=== PATIENT | female | born 1965 | race Caucasian/White ===

== ENCOUNTER → 2017-01-20 | Outpatient (CLI) | payer OTHER ==
[2017-01-20 12:49] LABS: ALT/SGPT 18 U/L (12-78); AST/SGOT 15 U/L (15-37); BLOOD UREA NITROGEN 13 mg/dl (7-18); BUN/CREATININE RATIO 17.9 (10-20); CALCIUM 8.6 mg/dl (8.5-10.1); CARBON DIOXIDE 27 mmol/L (21-32); CHLORIDE 106 mmol/L (98-107); CHOLESTEROL 167 mg/dl (0-200); CREATININE 0.71 mg/dl (0.60-1.20); GLUCOSE,FASTING 91 mg/dl (70-99); POTASSIUM 4.3 mmol/L (3.5-5.1); SODIUM 138 mmol/L (136-145)
[2017-01-20 13:00] LABS: ALB/GLOB RATIO 0.9 (0.9-2); ALKALINE PHOSPHATASE 84 U/L (45-117); CHOLESTEROL/HDL RATIO 2.5; HDL CHOLESTEROL 68 mg/dl; LDL CHOLESTEROL CALCULATED 83 mg/dl; TRIGLYCERIDES 78 mg/dl (0-150); VERY LOW DENSITY LIPOPROT CALC 16 mg/dl
--- NOTE | 2017-01-28 10:31 | CODING QUERY MEDICAL NECESSITY ---
CQSUPPORTING DIAGNOSIS NEEDED A supporting diagnosis is required for the test/procedure performed on this patient in order for us to be reimbursed by the patient's insurance. Please provide a supporting diagnosis for the following test/procedure listed below next to the test name along with your signature. *If there is no additional diagnosis for this patient that would support the following test/procedure please document that below next to the test/procedure. Test(s)/Procedure(s) that require a supporting diagnosis: DOS 01/20/17 VITAMIN D TEST TEST ORDER BY CHELO NETTLES Provider Signature: Date: Thank you Nazia Gibbons Health Information Management Once completed, please kindly fax back to [phone] For questions please call [phone]
== END | disposition home or self-care (01) ==
LOC: MERGE 07:47 → C.LABPBG 07:47
PROVIDERS: ATTEND Physician Assistant
DX: Z00.00 Encounter for general adult medical examination without abnormal findings (principal); Z13.21 Encounter for screening for nutritional disorder; R53.83 Other fatigue

== ENCOUNTER → 2017-03-09 | Outpatient (CLI) | payer OTHER ==
[2017-03-09 12:54] LABS: BLOOD UREA NITROGEN 16 mg/dl (7-18); BUN/CREATININE RATIO 23.3 (10-20); CALCIUM 8.6 mg/dl (8.5-10.1); CARBON DIOXIDE 25 mmol/L (21-32); CHLORIDE 108 mmol/L (98-107); CREATININE 0.69 mg/dl (0.60-1.20); GLUCOSE 96 mg/dl (70-99); POTASSIUM 4.2 mmol/L (3.5-5.1); SODIUM 139 mmol/L (136-145)
== END | disposition home or self-care (01) ==
LOC: C.LABPBG 07:31
PROVIDERS: ATTEND Physician Assistant
DX: I10 Essential (primary) hypertension (principal)

== ENCOUNTER → 2017-05-13 | Outpatient (CLI) | payer OTHER ==
[2017-05-13 12:19] LABS: HEMATOCRIT 39.1 % (37-47); HEMOGLOBIN 13.2 g/dL (12.0-16.0); MEAN CELL VOLUME 95.4 fL (80-100); MEAN CORPUSCULAR HEMOGLOBIN 32.2 pg (25-34); MEAN CORPUSCULAR HGB CONC 33.8 g/dl (32-36); MEAN PLATELET VOLUME 11.5 fL (7.4-10.4); PLATELET COUNT 280 K/uL (130-400); RED CELL DISTRIBUTION WIDTH CV 12.1 % (11.5-14.5); RED CELL DISTRIBUTION WIDTH SD 41.9 fL (36.4-46.3); WHITE BLOOD COUNT 6.15 K/uL (4.8-10.8)
[2017-05-13 13:08] LABS: BLOOD UREA NITROGEN 15 mg/dl (7-18); CARBON DIOXIDE 27 mmol/L (21-32); CREATININE 0.82 mg/dl (0.60-1.20); GLUCOSE 100 mg/dl (70-99); POTASSIUM 3.8 mmol/L (3.5-5.1); SODIUM 137 mmol/L (136-145)
== END | disposition home or self-care (01) ==
LOC: C.LABPBG 07:34
PROVIDERS: ATTEND Family Medicine
DX: E55.9 Vitamin D deficiency, unspecified (principal); I10 Essential (primary) hypertension

== ENCOUNTER → 2017-07-15 | Outpatient (CLI) | payer OTHER ==
[2017-07-15 16:49] LABS: BASO % 0.4 %; BASO ABS # 0.04 K/uL (0-0.2); EOS % 1.2 %; EOS ABS # 0.11 K/uL (0-0.5); HEMATOCRIT 39.7 % (37-47); HEMOGLOBIN 13.7 g/dL (12.0-16.0); IG# 0.03 K/uL (0.00-0.02); LYMPH % 16.6 %; LYMPH ABS # 1.54 K/uL (1.2-3.4); MEAN CORPUSCULAR HEMOGLOBIN 32.8 pg (25-34); MEAN CORPUSCULAR HGB CONC 34.5 g/dl (32-36); MEAN PLATELET VOLUME 10.8 fL (7.4-10.4); MONO ABS # 0.65 K/uL (0.11-0.59); NEUT % 74.5 %; NEUT ABS # 6.89 K/uL (1.4-6.5); PLATELET COUNT 324 K/uL (130-400); RED CELL DISTRIBUTION WIDTH CV 12.4 % (11.5-14.5); WHITE BLOOD COUNT 9.26 K/uL (4.8-10.8)
[2017-07-15 17:35] LABS: BLOOD UREA NITROGEN 13 mg/dl (7-18); CALCIUM 9.2 mg/dl (8.5-10.1); CARBON DIOXIDE 28 mmol/L (21-32); GLUCOSE 94 mg/dl (70-99); POTASSIUM 3.4 mmol/L (3.5-5.1); SODIUM 136 mmol/L (136-145)
== END | disposition home or self-care (01) ==
LOC: C.LABPBG 14:21
PROVIDERS: ATTEND Family Medicine
DX: R51 Headache (principal)

== ENCOUNTER → 2017-09-23 | Day surgery (SDC) | payer OTHER ==
[2017-09-14 08:35] VITALS: Ht 170.2 cm; Wt 100.0 kg
[~2017-09-23] VITALS: Ht 170.2 cm; Wt 100.0 kg
[~2017-09-23] MED LIST: CHOL1000 PO; HYDR12.55 PO; HYZ/50125 PO; LIDOCAINE HCL 2% 2 ML VIAL (20MG/ML) ONE; PRM625 PO; PROPOFOL IV EMULSION 10 MG/ML 20 ML VIAL ONE; SERT-234 PO; SODIUM CHLORIDE 0.9% 500ML 500 ML IV ONE; VALA500T60 PO
--- NOTE | 2017-09-23 10:21 | Endo History and Physical ---
History & Physical Date of Service: September 23, 2017. Chief Complaint: screening Referring Physician: Dr. Geni Coates History of Present Illness 51 yo CF who presents for screening colonoscopy. Past Surgical History Hx Cardiac Surgery: No Hx Internal Defibrillator: No Hx Pacemaker: No Hx Abdominal Surgery: Yes (TUBAL,HYSTERECTOMY 1 OVARY) Hx of Implantable Prosthesis: No Hx Post-Op Nausea and Vomiting: No Hx Cancer Surgery: No Hx Thoracic Surgery: No Hx Orthopedic: No Hx Urinary Tract Surgery: No Family History Polyp Social History Smoking Status: Never Smoker Hx Substance Use: No Hx Alcohol Use: Yes (OCC WINE ) Allergies Coded Allergies: No Known Allergies (Verified , 09/23/17) Current Medications Reported Home Medications Medications Dose Route/Sig Max Daily Dose Days Date Category Vitamin D3 (Cholecalciferol) 1,000 Unit Tab 1 Tab PO QAM 90 09/14/17 Reported Valtrex (Valacyclovir HCl) 500 Mg Tab 500 Mg PO UD PRN 09/14/17 Reported Zoloft (Sertraline HCl) 100 Mg Tab 100 Mg PO QAM 09/14/17 Reported Premarin (Estrogens Conjugated) 0.625 Mg Tab 0.625 Mg PO QAM 09/14/17 Reported Hyzaar 12.5MG/50MG (HCTZ/Losartan Potassium) Tab 1 Tab PO QAM 09/14/17 Reported Hydrochlorothiazide 12.5 Mg Tab 1 Tab PO QAM 90 09/14/17 Reported Vital Signs Weight (Kilograms): 100 Height (Feet): 5 Height (Inches): 7 Date Time Temp Pulse Resp B/P (MAP) Pulse Ox O2 Delivery O2 Flow Rate FiO2 09/23/17 10:08 131/89 (103) 09/23/17 09:59 36.8 87 18 171/102 (125) 96 Room Air Physical Exam General Appearance: WD/WN, no apparent distress Respiratory/Chest: Auscultation: breath sounds normal Cardiovascular: Heart Auscultation: RRR Abdomen: Bowel Sounds: normal Inspection & Palpation: soft, non-distended, no tenderness, guarding & rebound Assessment and Plan Assessment: 51 yo CF who presents for screening colonoscopy. Plan: Proceed with colonoscopy.
--- NOTE | 2017-09-23 11:16 | Discharge Instructions ---
Endoscopy Patient Instructions Date / Procedure(s) Performed September 23, 2017. Colonoscopy Allergy Information Coded Allergies: No Known Allergies (Verified , 09/23/17) Discharge Date / Findings September 23, 2017. Internal hemorrhoids Medication Instructions OK to resume all medications today as prescribed Reported Home Medications Medications Dose Route/Sig Max Daily Dose Days Date Category Vitamin D3 (Cholecalciferol) 1,000 Unit Tab 1 Tab PO QAM 90 09/14/17 Reported Valtrex (Valacyclovir HCl) 500 Mg Tab 500 Mg PO UD PRN 09/14/17 Reported Zoloft (Sertraline HCl) 100 Mg Tab 100 Mg PO QAM 09/14/17 Reported Premarin (Estrogens Conjugated) 0.625 Mg Tab 0.625 Mg PO QAM 09/14/17 Reported Hyzaar 12.5MG/50MG (HCTZ/Losartan Potassium) Tab 1 Tab PO QAM 09/14/17 Reported Hydrochlorothiazide 12.5 Mg Tab 1 Tab PO QAM 90 09/14/17 Reported Provider Instructions Activity Restrictions - No exercising or heavy lifting for 24 hours. - Do not drink alcohol the day of the procedure. - Do not drive a car or operate machinery until the day after the procedure. - Do not make any important decisions or sign important papers in 24 hours after the procedure. Following Day: - Return to full activity which may include returning to work/school. Diet Start your diet with liquids and light foods (jello, soup, juice, toast). Then eat your usual diet if not nauseated. Treatment For Common After Affects For mild abdominal pain, bloating, or excessive gas: - Rest - Eat lightly - Lie on right side Follow-Up Information Follow-up with Dr. Geni Coates as scheduled Anesthesia Information What You Should Know You have had a procedure that required some medicine to reduce anxiety and discomfort. This treatment is called moderate sedation. After receiving the treatment, you may be sleepy, but you will be able to breathe on your own. The effects of the treatment may last for several hours. Follow these instructions along with Activity/Diet recommendations noted above: * Do NOT do anything where dizziness or clumsiness would be dangerous. * Rest quietly at home today, then you can be up and about tomorrow. * Have a responsible person stay with you the rest of today. * You may have had an I.V. today. If so, you may take the dressing off later today. Recommendations Call your doctor if: * Trouble breathing * Continuous vomiting for more than 24 hours * Temperature above 101 degrees * Severe abdominal pain or bloating * Pain not relieved by pain medicine ordered * There is increased drainage or redness from any incision * A large amount of rectal bleeding greater than 2-3 tablespoons. (If you had a polyp/s removed or have hemorrhoids, a small amount of blood - from the rectum is to be expected.) * You have any unanswered questions or concerns. IN THE EVENT OF A SERIOUS EMERGENCY, GO TO THE NEAREST EMERGENCY ROOM Your discharge instructions were prepared by provider Salvador Bradley. Patient Instructions Signature Page Ratna Forrester Patient (or Guardian) Signature/Date: I have read and understand the instructions given to me by my caregivers. Caregiver/RN/Doctor Signature/Date: The above-named patient and/or guardian has received patient instructions on this date. + Original Patient Signature Page (only) stays with chart. Please make copy for patient.
--- NOTE | 2017-09-23 11:23 | GI REPORT ---
Patient Name: Ratna Forrester Procedure Date: 09/23/2017 10:13 AM Date of : 1965 Admit Type: Outpatient Age: 51 Gender: Female Attending MD: Salvador Bradley DO Procedure: Colonoscopy Providers: Salvador Bradley DO Referring MD: Geni Coates Indications: Screening for colorectal malignant neoplasm Medicines: Monitored Anesthesia Care Complications: No immediate complications. Estimated Blood Loss: Estimated blood loss: none. Procedure: Pre-Anesthesia Assessment: - Prior to the procedure, a History and Physical was performed, and patient medications and allergies were reviewed. The patient's tolerance of previous anesthesia was also reviewed. The risks and benefits of the procedure and the sedation options and risks were discussed with the patient. All questions were answered, and informed consent was obtained. Prior Anticoagulants: The patient has taken no previous anticoagulant or antiplatelet agents. ASA Grade Assessment: II - A patient with mild systemic disease. After reviewing the risks and benefits, the patient was deemed in satisfactory condition to undergo the procedure. After I obtained informed consent, the scope was passed under direct vision. Throughout the procedure, the patient's blood pressure, pulse, and oxygen saturations were monitored continuously. The scope was introduced through the anus and advanced to the terminal ileum. The colonoscopy was performed without difficulty. The patient tolerated the procedure well. The quality of the bowel preparation was good. The terminal ileum, ileocecal valve, appendiceal orifice, and rectum were photographed. Findings: The perianal and digital rectal examinations were normal. Non-bleeding internal hemorrhoids were found during retroflexion. The hemorrhoids were small. Impression: - Non-bleeding internal hemorrhoids. - No specimens collected. Recommendation: - Resume previous diet. - Continue present medications. - Repeat colonoscopy in 10 months for surveillance. - Return to primary care physician as previously scheduled. Salvador Bradley DO 09/23/2017 11:22:38 AM This report has been signed electronically. Note Initiated On: 09/23/2017 10:13 AM Number of Addenda: 0 I attest to the content of the Intraoperative Record and orders documented therein, exceptions below {[id number]}
--- NOTE | 2017-09-23 11:41 | Anesthesiology Progress Note ---
Anesthesia Post Op Note Date & Time September 23, 2017 at 11:41 Vital Signs Pain Intensity: 0 Vital Signs Past 12 Hours Date Time Temp Pulse Resp B/P (MAP) Pulse Ox O2 Delivery O2 Flow Rate FiO2 09/23/17 11:36 77 20 148/96 (113) 97 Room Air 09/23/17 11:19 83 16 138/79 (98) 96 Room Air 09/23/17 10:08 131/89 (103) 09/23/17 09:59 36.8 87 18 171/102 (125) 96 Room Air Notes Mental Status: alert / awake / arousable, participated in evaluation Pt Amnestic to Procedure: Yes Nausea / Vomiting: adequately controlled Pain: adequately controlled Airway Patency, RR, SpO2: stable & adequate BP & HR: stable & adequate Hydration State: stable & adequate Anesthetic Complications: no major complications apparent
[2017-09-23 11:48] VITALS: BP 148/85; PULSE 76; O2SAT 97
== END | disposition home or self-care (01) ==
LOC: C.GI 09:36
PROVIDERS: ATTEND Internal Medicine
DX: Z12.11 Encounter for screening for malignant neoplasm of colon (principal); Z83.71 Family history of colonic polyps; I10 Essential (primary) hypertension; F32.9 Major depressive disorder, single episode, unspecified; K64.8 Other hemorrhoids

== ENCOUNTER → 2017-12-12 | Outpatient (CLI) | payer OTHER ==
[~2017-12-12] MED LIST changes: -LIDOCAINE HCL 2% 2 ML VIAL (20MG/ML) ONE; -PROPOFOL IV EMULSION 10 MG/ML 20 ML VIAL ONE; -SODIUM CHLORIDE 0.9% 500ML 500 ML IV ONE
--- NOTE | 2017-12-12 09:02 | DIAGNOSTIC IMAGING REPORT ---
(BARIUM SWALLOW) ESOPHAGUS CLINICAL HISTORY: GERDdyspnea COMPARISON STUDY: None FLUOROSCOPY TIME: 1.1 minutes. FINDINGS: Patient initiates a swallow function well. There is no evidence for aspiration or neuromuscular dysfunction. Esophagus is normal in course and caliber. Findings of a mild esophageal spasm distally. There is no significant reflux. IMPRESSION: Mild esophageal dysmotility. Otherwise normal study. The above report was generated using voice recognition software. It may contain grammatical, syntax or spelling errors. Electronically signed by: Jeramie Cruz M.D. 12/12/2017 9:01 AM Dictated Date/Time: 12/12/2017 8:59 AM
== END | disposition home or self-care (01) ==
LOC: C.RAD 07:59
DX: K21.9 Gastro-esophageal reflux disease without esophagitis (principal); K22.8 Other specified diseases of esophagus

== ENCOUNTER 2020-09-01 11:52 | Inpatient (IN) ==
[2020-09-01] MEDS ORDERED: SODIUM CHLORIDE 0.9% 1000ML 1,000 ML IV ONE (12:54)
[2020-09-01] MEDS ORDERED: dexAMETHasone**PF** 10 MG/ML VIAL IV ONE (12:55)
--- NOTE | 2020-09-01 13:03 | Emergency Department Note ---
Impression & Plan Pneumonia due to COVID-19 virus, Acute respiratory failure with hypoxia ED Provider Note NAME: ZBIGNIEW BROOKS AGE: 54 SEX: F : 1965 ARRIVES VIA: Walk-In INFORMANT: Patient ED PROVIDER(S): Naga Schuster DO CHIEF COMPLAINT: shortness of breath HPI: Patient is a 54-year-old female who presents to the ER for shortness of breath associate with cough, congestion, and a runny nose. Symptoms started 2 Sundays ago. She denies any fevers. She notes chest pain with twisting turning bending and breathing. Denies any belly pain, nausea, vomiting. She does admit to some diarrhea. No dysuria, urgency, or frequency. No other exacerbating or remitting factors. She tested positive for Covid several days ago at an outside facility. ROS: See above HPI for pertinent positives & negatives. A total of 10 systems reviewed and were otherwise negative. PAST MEDICAL HISTORY:See Below PAST SURGICAL HISTORY:See Below FAMILY HISTORY:See Below SOCIAL HISTORY:See Below HOME MEDICATIONS:See Below ALLERGIES:See Below VITALS:See Below PHYSICAL EXAMINATION: GENERAL: Sitting up in bed, alert, disheveled, intermittent cough EYE EXAM: normal conjunctiva. OROPHARYNX: no exudate, no erythema, lips, buccal mucosa, and tongue normal and mucous membranes are moist NECK: supple, no nuchal rigidity, no adenopathy, non-tender LUNGS: Clear to auscultation. Normal chest wall mechanics HEART: no murmurs, S1 normal and S2 normal ABDOMEN: abdomen soft, non-tender, normo-active bowel sounds, no masses, no rebound or guarding. UPPER EXTREMITIES: upper extremities are grossly normal. LOWER EXTREMITIES: No pitting edema. Calves are equal bilateral NEURO EXAM: Normal sensorium, cranial nerves II-XII grossly intact, normal speech, no gross weakness of arms, no gross weakness of legs. MEDICAL DECISION MAKING: Patient is a 54-year-old female who presents the ER for cough associate with shortness of breath. She is found to be hypoxic at 86% on room air. She was placed on 2 L nasal cannula. IV was established blood was obtained. Labs showed no significant leukocytosis or anemia. BMP with mild hypokalemia at 3. LFTs bilirubin was unremarkable. Troponin was negative. She is Covid positive. Chest x-ray with multifocal infiltrate. She was given IV fluids Decadron and nasal cannula. She is updated bedside discussed with the hospitalist for further evaluation. Triage Nursing notes reviewed. Limited review of prior medical records performed Vital Signs: reviewed and remarkable for hypoxic Differential diagnosis: Differential diagnoses includes but is not limited to pneumonia, bronchitis, COPD/Asthma exacerbation, pneumothorax, pulmonary embolism, congestive heart failure, acute coronary syndrome ER treatment provided: See below Diagnostics interpreted by me: ECG: Sinus rhythm rate 86 Normal axis No PVCs QTC 445 Cardiac Monitoring: An order was placed for continuous cardiac monitoring. The monitor shows a rate of 90 with sinus rhythm. Laboratory studies: As stated above and show below. Imaging studies: Portable AP upright 1 view chest shows multifocal pneumonia Consultation(s): Discussed with hospitalist for further evaluation Procedures: none Critical Care: I have personally spent 38 minutes of critical care time in the direct management of this patient. This includes bedside care, interpretation of diagnostic studies, and testing, discussion with consultants, patient, and family members, and other required patient management activities. This 38 minutes is in excess of all separately billable procedures. Past Med/Surg History Medical History (Updated 09/01/20 @ 19:05 by Naga Schuster DO) Anxiety and depression Hypertension Internal hemorrhoids Laryngopharyngeal reflux Menopausal symptoms Vitamin D deficiency Surgical History H/O: hysterectomy History of laparoscopy Family History Father Myocardial infarction Stroke Diabetes Hypertension Coronary heart disease Mother Depression Hypothyroid Cancer brain Denies family history of Ovarian cancer Prostate cancer Breast cancer Colorectal cancer Social History Smoking Status: Never smoker Second Hand Exposure: No; Hx Alcohol Use: No Hx Substance Use: No Preferred Language: Divehi Communication Ability: Effective Visual Impairment: No Limitations Hearing Ability: Normal Qa Analyst Required: No Beliefs That Will Affect Care: None marital status: Current Living Situation: Spouse current occupational status: employed How many Children do You have: 1 Other Information That Helps Us Care for You: No Feels Safe at Home: Yes Safety Concerns: Feels Safe At This Time Childhood Exposure to Second-Hand Smoke: No caffeine: Yes (Tea 1 cup per day.) during the past year weight has: remained stable Dental Care, Regularly: Yes Physical Activity Frequency: Daily Seatbelt Use: always Sunscreen Use: Yes Assistive Devices: None Allergies Allergies Allergy/AdvReac Type Severity Reaction Status Date / Time No Known Allergies Allergy Verified 09/01/20 13:14 Home Meds Home Medications Medication Instructions Recorded Confirmed cholecalciferol (vitamin D3) 25 1,000 units PO DAILY 10/23/18 09/01/20 mcg (1,000 unit) capsule valacyclovir 500 mg tablet 500 mg PO BID PRN tab 10/19/19 09/01/20 estradiol 0.5 mg PO QAM 09/01/20 09/01/20 hydrochlorothiazide 25 mg PO QAM 09/01/20 09/01/20 sertraline 100 mg PO QAM 09/01/20 09/01/20 Previous Rx's Medication Instructions Recorded amlodipine 5 mg tablet 5 mg PO DAILY #90 tab 04/21/20 naproxen 500 mg tablet 500 mg PO Q12H PRN #60 tab 08/05/20 Results & Data (ED) Vital Signs Vital Signs - 24 hr 09/01/20 12:04 09/01/20 12:54 09/01/20 13:19 Temperature 37.1 C Temperature Source Skin Pulse Rate 91 H 90 Pulse Rate [Apical] Respiratory Rate 24 20 Respiratory Effort / Characteristics Non-Labored Spontaneous Short of Breath Respiratory Depth Normal Respiratory Pattern Regular Blood Pressure 126/79 Blood Pressure Mean 94 Pulse Oximetry 91 86 L 90 Oxygen Delivery Method Room Air Room Air Nasal Cannula Oxygen Flow Rate 1 Sepsis Recent Fever Within 48 Hours No Sepsis New/Unexplained Change in Mental Status N/A Sepsis Action Taken by Nursing No Action Required 09/01/20 14:19 Temperature Temperature Source Pulse Rate Pulse Rate [Apical] 89 Respiratory Rate 20 Respiratory Effort / Characteristics Respiratory Depth Respiratory Pattern Blood Pressure Blood Pressure Mean Pulse Oximetry 91 Oxygen Delivery Method Nasal Cannula Oxygen Flow Rate 2 Sepsis Recent Fever Within 48 Hours Sepsis New/Unexplained Change in Mental Status Sepsis Action Taken by Nursing Laboratory Data Result diagrams: 09/01/20 13:36 09/01/20 13:36 Lab Results 09/01/20 09/01/20 09/01/20 Range/Units 13:36 13:36 14:13 WBC 5.18 (4.8-10.8) K/uL RBC 4.40 (4.2-5.4) M/uL Hgb 14.2 (12.0-16.0) g/dL Hct 40.0 (37-47) % MCV 90.9 (80-100) fL MCH 32.3 (25-34) pg MCHC 35.5 (32-36) g/dL RDW Std Deviation 42.3 (36.4-46.3) fL RDW Coeff of Fernando 12.5 (11.5-14.5) % Plt Count 255 (130-400) K/uL MPV 10.2 (7.4-10.4) fL Immature Gran % (Auto) 0.4 % Neut % (Auto) 75.1 % Lymph % (Auto) 15.6 % [place] % (Auto) 8.9 % Eos % (Auto) 0.0 % Baso % (Auto) 0.0 % Neut # (Auto) 3.89 (1.4-6.5) K/uL Lymph # (Auto) 0.81 L (1.2-3.4) K/uL [place] # (Auto) 0.46 (0.11-0.59) K/uL Eos # (Auto) 0.00 (0-0.5) K/uL Baso # (Auto) 0.00 (0-0.2) K/uL Immature Gran # (Auto) 0.02 (0.00-0.02) K/uL Sodium 137 (136-145) mmol/L Potassium 3.0 L (3.5-5.1) mmol/L Chloride 101 (98-107) mmol/L Carbon Dioxide 29 (21-32) mmol/L Anion Gap 7.0 (3-11) BUN 13 (7-18) mg/dl Creatinine 0.83 (0.6-1.2) mg/dl Est Cr Clr Drug Dosing 94.7 ml/min Est GFR ( Amer) 93.3 Est GFR (Non-Af Amer) 80.5 BUN/Creatinine Ratio 16.0 (10-20) Glucose 93 (70-99) mg/dl Calcium 8.6 (8.5-10.1) mg/dl Total Bilirubin 0.4 (0.2-1) mg/dl AST 91 H (15-37) U/L ALT 71 (12-78) U/L Alkaline Phosphatase 82 (45-117) U/L Troponin I < 0.015 (0-0.045) ng/ml Total Protein 7.8 (6.4-8.2) gm/dl Albumin 3.1 L (3.4-5.0) gm/dl Globulin 4.7 H (2.5-4.0) gm/dl Albumin/Globulin Ratio 0.7 L (0.9-2) Lipase 127 (73-393) U/L COVID-19 Eval Order CovFluRsv at [facility] SARS-CoV-2 (PCR) (Negative) Influenza Type A (PCR) (Neg) Influenza Type B (PCR) (Neg) RSV (RT-PCR) (Neg) 09/01/20 Range/Units 14:13 WBC (4.8-10.8) K/uL RBC (4.2-5.4) M/uL Hgb (12.0-16.0) g/dL Hct (37-47) % MCV (80-100) fL MCH (25-34) pg MCHC (32-36) g/dL RDW Std Deviation (36.4-46.3) fL RDW Coeff of Fernando (11.5-14.5) % Plt Count (130-400) K/uL MPV (7.4-10.4) fL Immature Gran % (Auto) % Neut % (Auto) % Lymph % (Auto) % [place] % (Auto) % Eos % (Auto) % Baso % (Auto) % Neut # (Auto) (1.4-6.5) K/uL Lymph # (Auto) (1.2-3.4) K/uL [place] # (Auto) (0.11-0.59) K/uL Eos # (Auto) (0-0.5) K/uL Baso # (Auto) (0-0.2) K/uL Immature Gran # (Auto) (0.00-0.02) K/uL Sodium (136-145) mmol/L Potassium (3.5-5.1) mmol/L Chloride (98-107) mmol/L Carbon Dioxide (21-32) mmol/L Anion Gap (3-11) BUN (7-18) mg/dl Creatinine (0.6-1.2) mg/dl Est Cr Clr Drug Dosing ml/min Est GFR ( Amer) Est GFR (Non-Af Amer) BUN/Creatinine Ratio (10-20) Glucose (70-99) mg/dl Calcium (8.5-10.1) mg/dl Total Bilirubin (0.2-1) mg/dl AST (15-37) U/L ALT (12-78) U/L Alkaline Phosphatase (45-117) U/L Troponin I (0-0.045) ng/ml Total Protein (6.4-8.2) gm/dl Albumin (3.4-5.0) gm/dl Globulin (2.5-4.0) gm/dl Albumin/Globulin Ratio (0.9-2) Lipase (73-393) U/L COVID-19 Eval Order SARS-CoV-2 (PCR) POSITIVE A* (Negative) Influenza Type A (PCR) Negative (Neg) Influenza Type B (PCR) Negative (Neg) RSV (RT-PCR) Negative (Neg) Administered Medications Benzonatate (Benzonatate 100 Mg Capsule) 200 mg PO TID PRN PRN Reason: cough Stop: 10/01/20 14:32 Last Admin: 09/01/20 14:54 Dose: 200 mg Documented by: [id number] Discontinued Medications Dexamethasone Sodium Phosphate (DexamethasonePf 10 Mg/Ml Vial) 6 mg IV NOW ONE Stop: 09/01/20 12:56 Last Admin: 09/01/20 13:46 Dose: 6 mg Documented by: [id number] Sodium Chloride (Nss 1000ml) 1,000 mls @ 999 mls/hr IV .Q1H1M ONE Stop: 09/01/20 13:54 Last Infusion: 09/01/20 16:54 Dose: 0 mls/hr Documented by: [id number] Admin: 09/01/20 13:46 Dose: 999 mls/hr Documented by: [id number] Potassium Chloride ([place] / Wtr) 10 meq in 100 mls @ 100 mls/hr IV Q1H STA Stop: 09/01/20 15:32 Last Infusion: 09/01/20 16:54 Dose: 0 mls/hr Documented by: [id number] Admin: 09/01/20 14:54 Dose: 100 mls/hr Documented by: [id number] Potassium Chloride (Potassium Chloride Crtab 20 Meq Tabcr) 40 meq PO NOW STA Stop: 09/01/20 14:34 Last Admin: 09/01/20 14:54 Dose: 40 meq Documented by: [id number] Imaging Data Radiologist's Impression: Chest X-Ray 09/01/20 12:54 XR chest 1V portable CLINICAL HISTORY: Chest Pain COMPARISON STUDY: No previous studies for comparison. FINDINGS: Lung volumes are mildly diminished. There is no pneumothorax or pleural effusion. Moderate bilateral airspace opacities are present. Cardiac size is at the upper limits of normal. IMPRESSION: Moderate bilateral airspace opacities suggestive of an infectious process such as viral pneumonia. Radiographic follow-up to ensure resolution is recommended. ACT 112: Negative or not required by law. Electronically signed by: Pete Hugo M.D. 09/01/2020 1:30 PM Discharge Plan Visit Data Chief Complaint: Shortness of Breath/Dyspnea Stated Complaint: COVID POSITIVE4/29 SHORTNESS OF BREATH ED Provider: Naga Schuster Discharge Problem: Pneumonia due to COVID-19 virus, Acute respiratory failure with hypoxia Patient Disposition: Admitted As Inpatient Discharge Instructions Interventions: ED Discharge Assessment Last Done: 09/01/20 16:54
--- NOTE | 2020-09-01 13:31 | XRay Report ---
XR chest 1V portable CLINICAL HISTORY: Chest Pain COMPARISON STUDY: No previous studies for comparison. FINDINGS: Lung volumes are mildly diminished. There is no pneumothorax or pleural effusion. Moderate bilateral airspace opacities are present. Cardiac size is at the upper limits of normal. IMPRESSION: Moderate bilateral airspace opacities suggestive of an infectious process such as viral pneumonia. Radiographic follow-up to ensure resolution is recommended. ACT 112: Negative or not required by law. Electronically signed by: Pete Hugo M.D. 09/01/2020 1:30 PM
[2020-09-01 13:46] LABS: Hemoglobin 14.2 g/dL (12.0-16.0); Immature Granulocytes # (auto) 0.02 K/uL (0.00-0.02); Immature Granulocytes % (auto) 0.4 %; Lymphocytes # (auto) 0.81 K/uL (1.2-3.4); Lymphocytes % (auto) 15.6 %; Mean Corpuscular Hemoglobin 32.3 pg (25-34); Mean Corpuscular Hgb Conc 35.5 g/dL (32-36); Mean Corpuscular Volume 90.9 fL (80-100); Mean Platelet Volume 10.2 fL (7.4-10.4); Monocytes # (auto) 0.46 K/uL (0.11-0.59); Monocytes % (auto) 8.9 %; Neutrophils # (auto) 3.89 K/uL (1.4-6.5); Neutrophils % (auto) 75.1 %; Platelet Count 255 K/uL (130-400); RDW Coefficient of Variation 12.5 % (11.5-14.5); RDW Standard Deviation 42.3 fL (36.4-46.3); White Blood Count 5.18 K/uL (4.8-10.8)
--- NOTE | 2020-09-01 13:57 | History & Physical Report ---
Date of Service September 01, 2020 Assessment & Plan (1) Pneumonia due to COVID-19 virus: Presents with 8 to 9 days of Covid symptoms and tested positive at an outside facility Here with bilateral multifocal infiltrates on chest x-ray consistent with Covid- 19 pneumonia With hypoxia with pulse ox 86% on room air requiring supplemental O2 She has no history of pulmonary disease or smoking. She does have risk factors for severe Covid disease of obesity and hypertension. -Admit to medical floor with telemetry -Continue IV Decadron 6 mg daily x10-day course -Supplemental O2 to keep pulse ox greater than 90-92% -Remdesivir likely of no benefit at this point; convalescent plasma also not likely to have any benefit -Could potentially be a candidate for tocilizumab if decompensates to requiring high flow nasal cannula in the next 72 hours -Pulmonary toilet to be ordered-albuterol as needed, incentive spirometry, flutter valve -Start Tessalon Perles 200 mg p.o. 3 times daily as needed cough as well as guaifenesin with codeine as needed -Encourage prone positioning 4 times daily (2) Acute respiratory failure with hypoxia: Supplemental O2 as above Pulmonary toilet, bronchodilators as needed Decadron ordered (3) Anxiety and depression: Stable Continue home sertraline (4) Vitamin D deficiency: Stable Continue home vitamin D (5) Laryngopharyngeal reflux: No acute issues Is not currently on medication for this -Add on Pepcid while on IV steroids (6) Hypertension: Blood pressures are controlled Continue home HCTZ, amlodipine (7) Hypokalemia: Potassium 3.0 on admission Likely secondary to poor p.o. intake, taking hydrochlorothiazide Replace with p.o. and IV potassium chloride Follow BMP and magnesium levels in the morning (8) Menopausal symptoms: Advised we will hold her estradiol for now as she is at high risk for VTE in the setting of obesity, Covid-19 infection If has unbearable menopausal symptoms, can restart with known risk (9) DVT prophylaxis: Lovenox 40 mg SQ twice daily, SCDs Disposition-admit to medical floor with telemetry Full code History of Present Illness Chief Complaint: Shortness of breath, Covid Primary Care Provider: Geni Coates, This patient is a 54-year-old female with history of anxiety/depression, HTN, laryngopharyngeal reflux, and vitamin D deficiency who presents to the ER with 8 days of cough, shortness of breath, congestion and runny nose as well as intermittent headaches. Denies any fevers. She does have some chest pain with twisting, turning, bending, and deep breathing and coughing for the last 5 days. Denies abdominal pain, nausea/vomiting but has had some diarrhea. She tested positive for Covid-19 at an outside facility a few days prior. She did receive her first Covid vaccine on August 24. She denies any calf or lower extremity pain, no lower extremity swelling. In the ER, she was noted to be hypoxic at 86% on room air and was placed on 1 L nasal cannula to achieve a pulse ox of 90%. She was afebrile and vitals were otherwise stable. She was noted to have a mild lymphopenia and hypokalemia as well as minimally elevated transaminases. Her chest x-ray showed bilateral infiltrates consistent with Covid-19 pneumonia. In the ER, she was given IV dexamethasone as well as 1 L of normal saline. Allergies Allergy/AdvReac Type Severity Reaction Status Date / Time No Known Allergies Allergy Verified 09/01/20 13:14 Home Medications Medication Instructions Recorded Confirmed Type cholecalciferol (vitamin D3) 25 1,000 units PO DAILY 10/23/18 09/01/20 History mcg (1,000 unit) capsule valacyclovir 500 mg tablet 500 mg PO BID PRN tab 10/19/19 09/01/20 History amlodipine 5 mg tablet 5 mg PO DAILY #90 tab 04/21/20 09/01/20 Rx naproxen 500 mg tablet 500 mg PO Q12H PRN #60 tab 08/05/20 09/01/20 Rx estradiol 0.5 mg PO QAM 09/01/20 09/01/20 History hydrochlorothiazide 25 mg PO QAM 09/01/20 09/01/20 History sertraline 100 mg PO QAM 09/01/20 09/01/20 History Past Med/Surg History Medical History (Updated 09/01/20 @ 14:39 by Lila Haji MD) Anxiety and depression Hypertension Internal hemorrhoids Laryngopharyngeal reflux Menopausal symptoms Vitamin D deficiency Surgical History H/O: hysterectomy History of laparoscopy Family History Father Myocardial infarction Stroke Diabetes Hypertension Coronary heart disease Mother Depression Hypothyroid Cancer brain Denies family history of Ovarian cancer Prostate cancer Breast cancer Colorectal cancer Social History Smoking Status: Never smoker Second Hand Exposure: No; Hx Alcohol Use: No Hx Substance Use: No Preferred Language: German Communication Ability: Effective Visual Impairment: No Limitations Hearing Ability: Normal Grid Caster Required: No Beliefs That Will Affect Care: None marital status: Current Living Situation: Spouse current occupational status: employed How many Children do You have: 1 Feels Safe at Home: Yes Childhood Exposure to Second-Hand Smoke: No caffeine: Yes (Tea 1 cup per day.) during the past year weight has: remained stable Dental Care, Regularly: Yes Physical Activity Frequency: Daily Seatbelt Use: always Sunscreen Use: Yes Review of Systems Review of Systems: All systems reviewed & are unremarkable except as noted in HPI & below Has been having some sweats and chills at night but no documented fevers. No dysuria or urinary issues Physical Exam Constitutional: WD/WN, vitals as above + obese Eyes: PERRL, conjunctivae normal, anicteric sclerae ENMT: external ear and nose normal, oropharynx normal Neck: trachea midline, no thyromegaly Respiratory: normal respiratory effort and + cough Auscultation: + crackles (Positive at the lower lung arcos bilaterally); no rhonchi and no wheezes Cardiovascular: RRR, no murmur, no edema Extremities: no calf tenderness (And negative Adrián's sign bilaterally) Chest (Breasts): Chest: normal inspection of chest (Positive TTP over the costochondral junction anterior chest/sternum) Gastrointestinal (Abdomen): normal bowel sounds, soft, nontender, no hepatosplenomegaly Musculoskeletal: Extremities: extremities normal to inspection; no cyanosis and no clubbing Skin: no rashes, warm and dry Neurologic: moves all extremities and awake; no focal motor deficits Psychiatric: A+Ox3, euthymic affect Lymphatic: no lymphedema Results & Data Results & Data ([facility] [place]) Vital Signs (Past 12 Hours) Vital Signs Temp Pulse Resp BP Pulse Ox 09/01/20 13:19 90 20 90 09/01/20 12:54 86 L 09/01/20 12:04 37.1 C 91 H 24 126/79 91 Laboratory Results 09/01/20 09/01/20 09/01/20 Range/Units 14:13 14:13 13:36 WBC (4.8-10.8) K/uL RBC (4.2-5.4) M/uL Hgb (12.0-16.0) g/dL Hct (37-47) % MCV (80-100) fL MCH (25-34) pg MCHC (32-36) g/dL RDW Std Deviation (36.4-46.3) fL RDW Coeff of Fernando (11.5-14.5) % Plt Count (130-400) K/uL MPV (7.4-10.4) fL Immature Gran % (Auto) % Neut % (Auto) % Lymph % (Auto) % [place] % (Auto) % Eos % (Auto) % Baso % (Auto) % Neut # (Auto) (1.4-6.5) K/uL Lymph # (Auto) (1.2-3.4) K/uL [place] # (Auto) (0.11-0.59) K/uL Eos # (Auto) (0-0.5) K/uL Baso # (Auto) (0-0.2) K/uL Immature Gran # (Auto) (0.00-0.02) K/uL Sodium 137 (136-145) mmol/L Potassium 3.0 L (3.5-5.1) mmol/L Chloride 101 (98-107) mmol/L Carbon Dioxide 29 (21-32) mmol/L Anion Gap 7.0 (3-11) BUN 13 (7-18) mg/dl Creatinine 0.83 (0.6-1.2) mg/dl Est Cr Clr Drug Dosing 94.7 ml/min Est GFR ( Amer) 93.3 Est GFR (Non-Af Amer) 80.5 BUN/Creatinine Ratio 16.0 (10-20) Glucose 93 (70-99) mg/dl Calcium 8.6 (8.5-10.1) mg/dl Total Bilirubin 0.4 (0.2-1) mg/dl AST 91 H (15-37) U/L ALT 71 (12-78) U/L Alkaline Phosphatase 82 (45-117) U/L Troponin I < 0.015 (0-0.045) ng/ml Total Protein 7.8 (6.4-8.2) gm/dl Albumin 3.1 L (3.4-5.0) gm/dl Globulin 4.7 H (2.5-4.0) gm/dl Albumin/Globulin Ratio 0.7 L (0.9-2) Lipase 127 (73-393) U/L COVID-19 Eval Order CovFluRsv at [facility] SARS-CoV-2 (PCR) Pending Influenza Type A (PCR) Pending Influenza Type B (PCR) Pending RSV (RT-PCR) Pending 09/01/20 Range/Units 13:36 WBC 5.18 (4.8-10.8) K/uL RBC 4.40 (4.2-5.4) M/uL Hgb 14.2 (12.0-16.0) g/dL Hct 40.0 (37-47) % MCV 90.9 (80-100) fL MCH 32.3 (25-34) pg MCHC 35.5 (32-36) g/dL RDW Std Deviation 42.3 (36.4-46.3) fL RDW Coeff of Fernando 12.5 (11.5-14.5) % Plt Count 255 (130-400) K/uL MPV 10.2 (7.4-10.4) fL Immature Gran % (Auto) 0.4 % Neut % (Auto) 75.1 % Lymph % (Auto) 15.6 % [place] % (Auto) 8.9 % Eos % (Auto) 0.0 % Baso % (Auto) 0.0 % Neut # (Auto) 3.89 (1.4-6.5) K/uL Lymph # (Auto) 0.81 L (1.2-3.4) K/uL [place] # (Auto) 0.46 (0.11-0.59) K/uL Eos # (Auto) 0.00 (0-0.5) K/uL Baso # (Auto) 0.00 (0-0.2) K/uL Immature Gran # (Auto) 0.02 (0.00-0.02) K/uL Sodium (136-145) mmol/L Potassium (3.5-5.1) mmol/L Chloride (98-107) mmol/L Carbon Dioxide (21-32) mmol/L Anion Gap (3-11) BUN (7-18) mg/dl Creatinine (0.6-1.2) mg/dl Est Cr Clr Drug Dosing ml/min Est GFR ( Amer) Est GFR (Non-Af Amer) BUN/Creatinine Ratio (10-20) Glucose (70-99) mg/dl Calcium (8.5-10.1) mg/dl Total Bilirubin (0.2-1) mg/dl AST (15-37) U/L ALT (12-78) U/L Alkaline Phosphatase (45-117) U/L Troponin I (0-0.045) ng/ml Total Protein (6.4-8.2) gm/dl Albumin (3.4-5.0) gm/dl Globulin (2.5-4.0) gm/dl Albumin/Globulin Ratio (0.9-2) Lipase (73-393) U/L COVID-19 Eval Order SARS-CoV-2 (PCR) Influenza Type A (PCR) Influenza Type B (PCR) RSV (RT-PCR) 09/01/20 09/01/20 Range/Units 13:36 13:36 WBC 5.18 (4.8-10.8) K/uL RBC 4.40 (4.2-5.4) M/uL Hgb 14.2 (12.0-16.0) g/dL Hct 40.0 (37-47) % MCV 90.9 (80-100) fL MCH 32.3 (25-34) pg MCHC 35.5 (32-36) g/dL RDW Std Deviation 42.3 (36.4-46.3) fL RDW Coeff of Fernando 12.5 (11.5-14.5) % Plt Count 255 (130-400) K/uL MPV 10.2 (7.4-10.4) fL Immature Gran % (Auto) 0.4 % Neut % (Auto) 75.1 % Lymph % (Auto) 15.6 % [place] % (Auto) 8.9 % Eos % (Auto) 0.0 % Baso % (Auto) 0.0 % Neut # (Auto) 3.89 (1.4-6.5) K/uL Lymph # (Auto) 0.81 L (1.2-3.4) K/uL [place] # (Auto) 0.46 (0.11-0.59) K/uL Eos # (Auto) 0.00 (0-0.5) K/uL Baso # (Auto) 0.00 (0-0.2) K/uL Immature Gran # (Auto) 0.02 (0.00-0.02) K/uL Sodium Pending Potassium Pending Chloride Pending Carbon Dioxide Pending Anion Gap Pending BUN Pending Creatinine Pending Est Cr Clr Drug Dosing Pending Est GFR ( Amer) Pending Est GFR (Non-Af Amer) Pending BUN/Creatinine Ratio Pending Glucose Pending Calcium Pending Total Bilirubin Pending AST Pending ALT Pending Alkaline Phosphatase Pending Troponin I Pending Total Protein Pending Albumin Pending Globulin Pending Albumin/Globulin Ratio Pending Lipase Pending Diagnostic Findings Chest x-ray image was personally reviewed by me and agree with the following report: Chest X-Ray 09/01/20 12:54 XR chest 1V portable CLINICAL HISTORY: Chest Pain COMPARISON STUDY: No previous studies for comparison. FINDINGS: Lung volumes are mildly diminished. There is no pneumothorax or pleural effusion. Moderate bilateral airspace opacities are present. Cardiac size is at the upper limits of normal. IMPRESSION: Moderate bilateral airspace opacities suggestive of an infectious process such as viral pneumonia. Radiographic follow-up to ensure resolution is recommended. ACT 112: Negative or not required by law. Electronically signed by: Pete Hugo M.D. 09/01/2020 1:30 PM ECG Additional Comments: ECG performed on 09/01/2020 at 1309 with normal sinus rhythm, rate 86, otherwise very mild flattening of T waves in V3 and V4, nonspecific, no old EKG to compare to Code Status & VTE Plan Code Status Full code VTE Prophylaxis Plan VTE Prophylaxis will be ordered: Yes PG Care Time/CCT Total # of Minutes Spent Total Time Spent with Patient: Total time spent is greater than 50% in c oordination of care (as documented) at patient's floor/unit and/or counseling patient: Coding Level of Care Code 13273 Initial Inpt Care Lvl 3 Diagnoses Pneumonia due to COVID-19 virus U07.1; J12.82 Acute respiratory failure with hypoxia J96.01 Anxiety and depression F41.9; F32.9 Vitamin D deficiency E55.9 Laryngopharyngeal reflux K21.9 Hypertension I10 Hypokalemia E87.6 Menopausal symptoms N95.1 DVT prophylaxis Z29.9
[2020-09-01 14:03] LABS: Alanine Aminotransferase 71 U/L (12-78); Albumin Level 3.1 gm/dl (3.4-5.0); Aspartate Aminotransferase 91 U/L (15-37); Blood Urea Nitrogen 13 mg/dl (7-18); Calcium 8.6 mg/dl (8.5-10.1); Carbon Dioxide 29 mmol/L (21-32); Chloride 101 mmol/L (98-107); Creatinine Clr Calc Pharmacy 94.7 ml/min; Est GFR (African American) 93.3; Est GFR (Non-African American) 80.5; Glucose 93 mg/dl (70-99); Lipase 127 U/L (73-393); Sodium 137 mmol/L (136-145)
[2020-09-01 14:08] LABS: Albumin Globulin Ratio 0.7 (0.9-2); Alkaline Phosphatase 82 U/L (45-117); Bilirubin,Total 0.4 mg/dl (0.2-1); Globulin 4.7 gm/dl (2.5-4.0); Total Protein 7.8 gm/dl (6.4-8.2); Troponin I < 0.015 ng/ml (0-0.045)
--- NOTE | 2020-09-01 14:24 | Electrocardiogram Report ---
Test Reason : Blood Pressure : / mmHG Vent. Rate : 086 BPM Atrial Rate : 086 BPM P-R Int : 138 ms QRS Dur : 088 ms QT Int : 372 ms P-R-T Axes : 031 009 020 degrees QTc Int : 445 ms Normal sinus rhythm Diffuse Minor Nonspecific T wave abnormality Abnormal ECG No previous ECGs available Confirmed by Berlin Murcia ([id number]) on 09/01/2020 2:24:12 PM Referred By: REFERRED SELF Confirmed By:Berlin Murcia
[2020-09-01] MEDS ORDERED: POTASSIUM CHLORIDE / WTR 10 MEQ/100 ML PLCT IV STA (14:33)
[2020-09-01] MEDS ORDERED: POTASSIUM CHLORIDE CRTAB 20 MEQ TABCR PO STA (14:33)
[2020-09-01] MEDS ORDERED: BENZONATATE 100 MG CAPSULE PO PRN (14:33)
[2020-09-01] MEDS ORDERED: guaiFENesin/CODEINE 100MG/10MG 5ML UDC PO PRN (14:33)
[2020-09-01 15:32] LABS: Influenza A virus by PCR Negative (Neg); Influenza B virus by PCR Negative (Neg); RSV by PCR Negative (Neg)
[2020-09-01 15:38] LABS: SARS CoV2 RNA(COVID-19) InHosp POSITIVE (Negative)
[2020-09-01] MEDS ORDERED: ONDANSETRON INJ 2 MG/ML 2 ML VIAL IV PRN (17:29)
[2020-09-01] MEDS ORDERED: ACETAMINOPHEN 325 MG TAB PO PRN (17:29)
[2020-09-01] MEDS: ALBUTEROL HFA 8 GM INHALER INH SCH (19:55)
[2020-09-01] MEDS: FAMOTIDINE 20 MG TAB PO SCH (20:14)
[2020-09-01] MEDS: ENOXAPARIN INJ 60 MG/0.6 ML SYR SQ SCH (20:14)
[2020-09-02] MEDS: ALBUTEROL HFA 8 GM INHALER INH SCH ×3 (01:10→12:54)
[2020-09-02 07:48] LABS: Basophils # (auto) 0.01 K/uL (0-0.2); Basophils % (auto) 0.2 %; Hematocrit (blood only) 39.3 % (37-47); Hemoglobin 13.5 g/dL (12.0-16.0); Immature Granulocytes # (auto) 0.02 K/uL (0.00-0.02); Immature Granulocytes % (auto) 0.4 %; Lymphocytes # (auto) 0.84 K/uL (1.2-3.4); Lymphocytes % (auto) 14.8 %; Mean Corpuscular Hemoglobin 31.2 pg (25-34); Mean Corpuscular Hgb Conc 34.4 g/dL (32-36); Mean Corpuscular Volume 90.8 fL (80-100); Mean Platelet Volume 9.8 fL (7.4-10.4); Monocytes # (auto) 0.45 K/uL (0.11-0.59); Monocytes % (auto) 7.9 %; Neutrophils # (auto) 4.35 K/uL (1.4-6.5); Neutrophils % (auto) 76.7 %; Platelet Count 282 K/uL (130-400); RDW Coefficient of Variation 12.5 % (11.5-14.5); RDW Standard Deviation 42.3 fL (36.4-46.3); Red Blood Count 4.33 M/uL (4.2-5.4); White Blood Count 5.67 K/uL (4.8-10.8)
[2020-09-02 08:15] LABS: Albumin Level 2.8 gm/dl (3.4-5.0); BUN Creatinine Ratio 17.2 (10-20); C Reactive Protein 8.39 mg/dl (0-0.29); Creatinine Clr Calc Pharmacy 110.1 ml/min; Est GFR (African American) 107.2; Est GFR (Non-African American) 92.5; Magnesium 2.5 mg/dl (1.8-2.4); Potassium 3.3 mmol/L (3.5-5.1)
[2020-09-02 08:19] LABS: Albumin Globulin Ratio 0.6 (0.9-2); Bilirubin,Total 0.3 mg/dl (0.2-1); Globulin 4.5 gm/dl (2.5-4.0); Total Protein 7.3 gm/dl (6.4-8.2)
[2020-09-02] MEDS: SERTRALINE HCL 100 MG TABLET PO SCH (09:12)
[2020-09-02] MEDS: hydroCHLOROthiazide 25 MG TAB PO SCH (09:12)
[2020-09-02] MEDS: FAMOTIDINE 20 MG TAB PO SCH ×2 (09:12→20:12)
[2020-09-02] MEDS: amLODIPine BESYLATE 5 MG TAB PO SCH (09:12)
[2020-09-02] MEDS: CHOLECALCIFEROL 1,000 UNITS 25 MCG TAB PO SCH (09:12)
[2020-09-02] MEDS: ENOXAPARIN INJ 60 MG/0.6 ML SYR SQ SCH ×2 (09:13→20:11)
[2020-09-02] MEDS: dexAMETHasone 6 MG in SYRINGE 0 ML IV SCH (09:13)
[2020-09-02] MEDS ORDERED: ALBUTEROL HFA 8 GM INHALER INH PRN (14:21)
--- NOTE | 2020-09-02 14:29 | Hospitalist Progress Note ---
Date of Service September 02, 2020 Assessment & Plan (1) Pneumonia due to COVID-19 virus: Presents with 8 to 9 days of Covid symptoms and tested positive at an outside facility. Got her first Moderna vaccine on August 24, which is when she began to experience symptoms. - Continue Decadron 6 mg IV daily x10-day course (End date: 09/10/2020) - Supplemental O2 to keep pulse ox greater than 90-92% -> Presently on 4L NC. - Remdesivir likely of no benefit at this point; convalescent plasma also not likely to have any benefit. - Could potentially be a candidate for tocilizumab if decompensates to requiring high flow nasal cannula before 09/04/2020. - Pulmonary toilet to be ordered-albuterol as needed, incentive spirometry, flutter valve - Continue Tessalon Perles 200 mg p.o. 3 times daily as needed cough as well as guaifenesin with codeine as needed. - Encouraged prone positioning as able. (2) Acute respiratory failure with hypoxia: Supplemental O2 as above. (3) Anxiety and depression: Stable. - Continue home sertraline (4) Vitamin D deficiency: Stable. - Continue home vitamin D (5) Laryngopharyngeal reflux: No acute issues. Is not currently on medication for this. - Added on Pepcid while on IV steroids (6) Hypertension: Blood pressures are controlled today at 110/70. - Continue home HCTZ, amlodipine (7) Menopausal symptoms: Advised we will hold her estradiol for now as she is at high risk for VTE in the setting of obesity, Covid-19 infection. - If has unbearable menopausal symptoms, can restart with known risk. - Presently stable. (8) DVT prophylaxis: Lovenox 50 mg SQ Q12h -> Per hospital Covid policy and supported with current evidence. Admission and Anticipated Discharge Date Admission Date: September 01, 2020 Subjective Feeling slightly short of breath after moving around in bed, but at rest, not much shortness of breath. Cough improved. Reports no fevers/chills, chest pain, abdominal pain, nausea, or vomiting. Physical Exam Constitutional: WD/WN, vitals as above Eyes: EOM intact bilaterally; no conjunctival abnormality ENMT: external ear and nose normal, oropharynx normal Neck: trachea midline, no thyromegaly normal visual inspection Respiratory: normal respiratory effort, lungs clear to auscultation no respiratory distress Cardiovascular: RRR, no murmur, no edema Gastrointestinal (Abdomen): Inspection/Auscultation: abdomen normal to inspection; abdomen not distended Musculoskeletal: no cyanosis or clubbing, extremities motor strength 5/5 Skin: no rashes, warm and dry Neurologic: moves all extremities and awake Psychiatric: Orientation: alert, oriented to person and cooperative Results & Data Results & Data ([facility]) Vital Signs (Past 12 Hours) Vital Signs Temp Pulse Pulse Resp BP Pulse Ox 09/02/20 12:55 81 18 88 L 09/02/20 08:03 36.5 C 78 20 108/70 85 L 09/02/20 07:31 59 L 09/02/20 07:30 88 20 90 09/02/20 03:56 36.7 C 79 18 110/67 91 PG Care Time/CCT Total # of Minutes Spent Total Time Spent with Patient: Total time spent is greater than 50% in coordination of care (as documented) at patient's floor/unit and/or counseling patient: Coding Level of Care Code 14732 Subseq Hosp Care Lvl 3 Diagnoses Pneumonia due to COVID-19 virus U07.1; J12.82 Acute respiratory failure with hypoxia J96.01 Anxiety and depression F41.9; F32.9 Vitamin D deficiency E55.9 Laryngopharyngeal reflux K21.9 Hypertension I10 Menopausal symptoms N95.1 DVT prophylaxis Z29.9
[2020-09-03 07:54] LABS: Hematocrit (blood only) 37.4 % (37-47); Hemoglobin 13.2 g/dL (12.0-16.0); Mean Corpuscular Hemoglobin 32.3 pg (25-34); Mean Corpuscular Hgb Conc 35.3 g/dL (32-36); Mean Corpuscular Volume 91.4 fL (80-100); Mean Platelet Volume 9.7 fL (7.4-10.4); Platelet Count 344 K/uL (130-400); RDW Coefficient of Variation 12.7 % (11.5-14.5); RDW Standard Deviation 42.6 fL (36.4-46.3); Red Blood Count 4.09 M/uL (4.2-5.4); White Blood Count 11.18 K/uL (4.8-10.8)
[2020-09-03] MEDS: SERTRALINE HCL 100 MG TABLET PO SCH (08:11)
[2020-09-03] MEDS: CHOLECALCIFEROL 1,000 UNITS 25 MCG TAB PO SCH (08:12)
[2020-09-03] MEDS: amLODIPine BESYLATE 5 MG TAB PO SCH (08:12)
[2020-09-03] MEDS: hydroCHLOROthiazide 25 MG TAB PO SCH (08:12)
[2020-09-03] MEDS: ENOXAPARIN INJ 60 MG/0.6 ML SYR SQ SCH (08:12)
[2020-09-03] MEDS: FAMOTIDINE 20 MG TAB PO SCH (08:13)
[2020-09-03 08:20] LABS: Calcium 9.3 mg/dl (8.5-10.1); Creatinine Clr Calc Pharmacy 113.2 ml/min; Est GFR (African American) 110.8; Est GFR (Non-African American) 95.6; Magnesium 2.3 mg/dl (1.8-2.4); Potassium 3.2 mmol/L (3.5-5.1)
[2020-09-03] MEDS: dexAMETHasone 6 MG in SYRINGE 0 ML IV SCH (09:02)
[2020-09-03] MEDS ORDERED: SODIUM CHLORIDE 0.65% NA SOLN 45 ML (OCEAN) ONE (13:24)
--- NOTE | 2020-09-03 14:58 | Discharge Summary ---
Date of Service September 03, 2020 Admission HPI Per Admitting Provider This patient is a 54-year-old female with history of anxiety/depression, HTN, laryngopharyngeal reflux, and vitamin D deficiency who presents to the ER with 8 days of cough, shortness of breath, congestion and runny nose as well as intermittent headaches. Denies any fevers. She does have some chest pain with twisting, turning, bending, and deep breathing and coughing for the last 5 days. Denies abdominal pain, nausea/vomiting but has had some diarrhea. She tested positive for Covid-19 at an outside facility a few days prior. She did receive her first Covid vaccine on August 24. She denies any calf or lower extremity pain, no lower extremity swelling. In the ER, she was noted to be hypoxic at 86% on room air and was placed on 1 L nasal cannula to achieve a pulse ox of 90%. She was afebrile and vitals were otherwise stable. She was noted to have a mild lymphopenia and hypokalemia as well as minimally elevated transaminases. Her chest x-ray showed bilateral infiltrates consistent with Covid-19 pneumonia. In the ER, she was given IV dexamethasone as well as 1 L of normal saline. Principal Diagnosis Covid-19 pneumonia Discharge Exam Constitutional WD/WN, vitals as above Eyes EOM intact bilaterally; no conjunctival abnormality ENMT external ear and nose normal, oropharynx normal Neck trachea midline, no thyromegaly normal visual inspection Respiratory normal respiratory effort, lungs clear to auscultation no respiratory distress Cardiovascular RRR, no murmur, no edema Gastrointestinal (Abdomen) Inspection/Auscultation: abdomen normal to inspection; abdomen not distended Musculoskeletal no cyanosis or clubbing, extremities motor strength 5/5 Skin no rashes, warm and dry Neurologic moves all extremities and awake Psychiatric Orientation: alert, oriented to person and cooperative Discharge Data Allergies Allergy/AdvReac Type Severity Reaction Status Date / Time No Known Allergies Allergy Verified 09/01/20 13:14 Consultations 09/01/20 13:56 ED Decision to Admit Stat Hospital Course (1) Pneumonia due to COVID-19 virus: Presents with 8 to 9 days of Covid symptoms and tested positive at an outside facility. Got her first Moderna vaccine on August 24, which is when she began to experience symptoms. - Continue Decadron 6 mg IV daily x10-day course (End date: 09/10/2020) - Supplemental O2 to keep pulse ox greater than 90-92% -> Presently on 4L NC. - By 09/03, she felt well and very much wanted to go home. She passed a 2-step with 2L O2 at rest and 4L with exertion. Remaining dexamethasone course was sent to the pharmacy. She was advised to avoid her Estradiol for another 2 weeks and take a baby aspirin to reduce her risk of VTE due to Covid. (2) Acute respiratory failure with hypoxia: Supplemental O2 as above. (3) Anxiety and depression: Stable. - Continue home sertraline (4) Vitamin D deficiency: Stable. - Continue home vitamin D (5) Laryngopharyngeal reflux: No acute issues. Is not currently on medication for this. - Added on Pepcid while on IV steroids (6) Hypertension: Blood pressures are controlled today at 110/70. - Continue home HCTZ, amlodipine (7) Menopausal symptoms: Advised we will hold her estradiol for now as she is at high risk for VTE in the setting of obesity, Covid-19 infection. - If has unbearable menopausal symptoms, can restart with known risk. - Presently stable. (8) DVT prophylaxis: Lovenox 50 mg SQ Q12h -> Per hospital Covid policy and supported with current evidence. Total Time Total Time Spent Total Time Spent (In Minutes): 35 Discharge Plan Discharge Items Patient Disposition: Home - Self-Care Reason For Visit: COVID PNA, HYPOXIA Discharge Diagnosis: Covid-19 pneumonia Activity: Resume your previous activity Non-emergency contact: Primary Care Provider Call non-emergency contact if: your symptoms worsen and your temperature is above 101 Follow-up/Referrals: Geni Coates DO [Primary Care Provider] - Diet: Regular Addtl Attending Provider Instructions: Ms. Forrester, You were admitted to the hospital with Covid-19 pneumonia. You needed oxygen when you came in, but luckily, your oxygen levels are improving with the steroids that are helping calm down the lung inflammation. Hopefully, you will only need oxygen for a short time longer. Please finish the steroid course at home with the oral steroid. Your next dose of dexamethasone will be tomorrow. Please use the inhaler as needed for any shortness of breath. Please get a pulse oximeter to keep tabs on your blood oxygen level at home. These can be found in most pharmacies or [facility]. We would like your oxygen level to stay above 90%. If it is dropping lower, please contact your PCP or come back to the hospital. Given your initial symptoms were on July 24, so you should isolate until at least Tuesday, September 07. At that point, as long as you are feeling better and not having fevers, you can go back to work, go to stores, etc. Please take a baby aspirin (81 mg) for the next 2 weeks as Covid can increase your risk of blood clots. Be sure to be up and active to the best of your ability to avoid any blood clots in the legs. If your menopausal symptoms aren't too intense, please also hold your Estradiol for another 2 weeks as well. Pending Studies at Discharge: No Stand-Alone Forms: My [facility], Smoking Cessation Medications and DC Order Prescriptions: New albuterol sulfate [Ventolin HFA] 90 mcg/actuation Hfa Aerosol Inhaler 2 puff inhalation Q4H PRN (Reason: shortness of breath or wheezing) Qty: 6.7 RF: 0 benzonatate [Tessalon Perles] 100 mg Capsule 100 mg PO TID PRN (Reason: cough) Qty: 20 RF: 0 (DME) Spacer for Inhaler Misc See Rx Instructions .ROUTE .COMPLEX Qty: 1 RF: 0 aspirin [Aspirin Low Dose] 81 mg tablet,delayed release (DR/EC) 81 mg PO DAILY Qty: 14 RF: 0 dexamethasone 6 mg tablet 6 mg PO DAILY Qty: 8 RF: 0 Continued amlodipine 5 mg tablet 5 mg PO DAILY Qty: 90 RF: 1 naproxen 500 mg tablet 500 mg PO Q12H PRN (Reason: headache) Qty: 60 RF: 1 cholecalciferol (vitamin D3) 1,000 unit capsule 1,000 units PO DAILY RF: 0 valacyclovir 500 mg tablet 500 mg PO BID PRN (Reason: Cold Sores) RF: 0 sertraline 100 mg tablet 100 mg PO QAM RF: 0 hydrochlorothiazide 25 mg tablet 25 mg PO QAM RF: 0 estradiol 0.5 mg tablet 0.5 mg PO QAM RF: 0 Discharge Orders: Discharge Order (Routine); Ordered 09/03/20 Ordered By: Ross Khan Admission Data Admit Date/Time: 09/01/20 14:33 Attending Provider: Ross Khan Admit Provider: Lila Haji Primary Care Provider: Geni Coates Other Providers: Ross Khan ; Lila Haji Other Interventions: Discharge Summary Assessment (RN) Last Done: 09/03/20 14:00 Coding Level of Care Code D/C Day Management >30 mins Diagnoses Pneumonia due to COVID-19 virus U07.1; J12.82 Acute respiratory failure with hypoxia J96.01 Anxiety and depression F41.9; F32.9 Vitamin D deficiency E55.9 Laryngopharyngeal reflux K21.9 Hypertension I10 Menopausal symptoms N95.1 DVT prophylaxis Z29.9
== END 2020-09-03 16:30 | disposition home or self-care (01) | DRG 177 ==
LOC: ED 11:52 → 2N 14:33 → SUATTDRO 14:33 → 2N 16:54
DX: J96.01 Acute respiratory failure with hypoxia; F32.9 Major depressive disorder, single episode, unspecified; J12.82 Pneumonia due to coronavirus disease 2019; E66.9 Obesity, unspecified; E87.6 Hypokalemia; Z68.38 Body mass index [BMI] 38.0-38.9, adult; F41.9 Anxiety disorder, unspecified; N95.1 Menopausal and female climacteric states; Z79.890 Hormone replacement therapy; K21.9 Gastro-esophageal reflux disease without esophagitis; E55.9 Vitamin D deficiency, unspecified; Z79.899 Other long term (current) drug therapy; U07.1 COVID-19; I10 Essential (primary) hypertension

== ENCOUNTER 2024-05-29 05:17 | Observation (INO) ==
--- NOTE | 2024-04-26 13:33 | PAT Medication Instructions ---
Medication Instructions Date of Service April 26, 2024 Home Medications Medication Instructions Recorded sertraline 100 mg tablet See Rx Instructions .Route 08/19/23 .COMPLEX #90 tabs hydrochlorothiazide 12.5 mg tablet 12.5 mg PO QAM #90 tabs 08/30/23 amlodipine 5 mg tablet 5 mg PO DAILY #90 tabs 12/05/23 diclofenac sodium 75 mg 75 mg PO BID PRN pain #60 tabs 01/23/24 tablet,delayed release walker #1 ea 03/26/24 omeprazole 20 mg capsule,delayed 20 mg PO DAILY #90 caps 04/20/24 release cholecalciferol (vitamin D3) 25 mcg (1,000 unit) capsule 1,000 units PO DAILY valacyclovir 500 mg tablet 500 mg PO BID PRN Cold Sores sertraline 100 mg tablet See Rx Instructions .Route .COMPLEX hydrochlorothiazide 12.5 mg tablet 12.5 mg PO QAM amlodipine 5 mg tablet 5 mg PO DAILY diclofenac sodium 75 mg tablet,delayed release 75 mg PO BID PRN pain omeprazole 20 mg capsule,delayed release 20 mg PO DAILY ASK your surgeon for instructions diclofenac sodium 75 mg tablet,delayed release 75 mg PO BID PRN pain DO NOT take the morning of surgery cholecalciferol (vitamin D3) 25 mcg (1,000 unit) capsule 1,000 units PO DAILY hydrochlorothiazide 12.5 mg tablet 12.5 mg PO QAM Take morning of surgery With a small sip of water, OTHERWISE NOTHING TO EAT OR DRINK AFTER MIDNIGHT: valacyclovir 500 mg tablet 500 mg PO BID PRN Cold Sores (if needed) sertraline 100 mg tablet See Rx Instructions .Route .COMPLEX amlodipine 5 mg tablet 5 mg PO DAILY omeprazole 20 mg capsule,delayed release 20 mg PO DAILY Take evening before surgery valacyclovir 500 mg tablet 500 mg PO BID PRN Cold Sores (if needed) Other Notes If you have any questions please call us at [phone] or [phone] or [phone] or [phone]
--- NOTE | 2024-05-10 15:45 | Anesthesiology Consultation ---
Date of Service May 10, 2024 Assessment & Plan (1) Encounter for pre-operative examination: - Infectious disease screening: Per assessment on 05/10/24- No known recent infectious disease contacts or current infectious disease symptoms. - Outpatient joint assessment: Pt currently scheduled for inpatient pathway. If surgeon requests review for outpatient joint pathway, patient is an acceptable candidate for outpatient joint program from anesthesia standpoint pending surgeon's office assessment that patient is motivated, has good support and completes Same Day Joint Program preop requirements. Chart Review Chart Review: Acceptable Risk for Surgery and Patient seen in Pre Admission Testing Teaching & Discussion Pre-Anesthesia Teaching/Discussion Notes: Instructed NPO after midnight before surgery,except medications with 15 cc of water. Medication instructions provided according to the PAT guidelines. History Surgery Operation Date: 05/29/24 10:40 Proposed Procedures p Left Total Hip Arthroplasty - Anshul Flores MD Height/Weight Height: 5 ft 7 in Weight: 114 kg Allergies Allergy/AdvReac Type Severity Reaction Status Date / Time No Known Drug Allergies Allergy Verified 04/23/24 10:54 Medications Home Medications Medication Instructions Recorded Confirmed Last Taken cholecalciferol (vitamin D3) 25 1,000 units PO DAILY 10/23/18 04/23/24 08/31/20 mcg (1,000 unit) capsule sertraline 100 mg tablet See Rx Instructions .Route 08/19/23 04/23/24 Unknown .COMPLEX #90 tabs amlodipine 5 mg tablet 5 mg PO DAILY #90 tabs 12/05/23 04/23/24 Unknown diclofenac sodium 75 mg 75 mg PO BID PRN pain #60 tabs 01/23/24 04/23/24 Unknown tablet,delayed release walker #1 ea 03/26/24 03/26/24 Unknown omeprazole 20 mg capsule,delayed 20 mg PO DAILY #90 caps 04/20/24 04/23/24 Unknown release hydrochlorothiazide 12.5 mg tablet 12.5 mg PO QAM #90 tabs 05/07/24 Unknown valacyclovir 500 mg tablet 500 mg PO BID PRN Cold Sores #60 05/08/24 Unknown tabs Past Medical History Medical History Depression History of COVID-19 (2020) Hospitalized at [facility] x4 days w/Covid PNA History of hypothyroidism Euthyroid off meds HTN (hypertension) Laryngopharyngeal reflux Obesity Osteoarthritis Exercise / Class Metabolic Activity II 4-5 Yardwork/Stairs/Walk up hill Past Family History Family History Father Myocardial infarction Stroke Diabetes Hypertension Coronary heart disease Mother Depression Hypothyroid Cancer brain Denies family history of Ovarian cancer Prostate cancer Breast cancer Colorectal cancer Past Surgical History Surgical History H/O: hysterectomy History of laparoscopy Hx of colonoscopy Hx of LASIK Status post epidural steroid injection left hip Past Anesthesia History No Hx of Anesthesia Complications and No Family Hx of Anesthesia Complications History of PONV No Hx of PONV and No Hx of Motion Sickness Social History Smoking Status: Never smoker Do You Dip or Chew Tobacco: No Hx Alcohol Use: Yes Alcohol type: wine alcohol intake frequency: holidays/special occasions only Hx Substance Use: No substance use type: does not use Review of Systems Patient denies chest pain, shortness of breath, dyspnea on exertion, fever, chills, cough, wheezing. Physical Exam Vital Signs BP 148/85 P 81 TEMP 98.2 SP02 98%RA RESP 18 Physical Full cervical extension range of motion. Full TMJ range of motion. TMD > 3.5 finger breaths Mallampati Score III Dentition: missing molars Lungs: clear throughout to auscultation Cardiac: regular rate and rhythm, no murmurs noted Spine: normal Carotid arteries: negative bruit Extremities: no LE edema Lab Results Anesthesia Preop Results Results Anesthesia Widget: WBC 7.04 K/ul (4.8-10.8) 05/10/24 Hgb 14.1 g/dl (12.0-16.0) 05/10/24 Hct 41.4 % (37.0-47.0) 05/10/24 Plt 321 K/uL (130-400) 05/10/24 Na 139 mmol/L (136-145) 05/10/24 K 4.0 mmol/L (3.5-5.1) 05/10/24 Cl 103 mmol/L (98-107) 05/10/24 CO2 30 mmol/L (21-32) 05/10/24 BUN 15 mg/dl (6-23) 05/10/24 Creat 0.72 mg/dl (0.6-1.2) 05/10/24 Glucose Level 94 mg/dl (70-99(Fasting)) 05/10/24 PT 10.4 Seconds (9.0-12.0) 05/10/24 PTT 27 Seconds (21-31) 05/10/24 INR 1.0 (0.9-1.1) 05/10/24 TSH 4.143 uIu/ml (0.300-4.500) 03/20/24 Blood Type A Positive 05/10/24 Antibody Screen NEGATIVE 05/10/24 Testing Electrocardiogram Date: 05/10/24 NSR at 73bpm. "Normal ECG" Chest X-Ray Date: 05/10/24 Findings: + NAD Stress Test Date: 10/11/23 Type: DSE Negative dobutamine stress echo/ECG for myocardial ischemia at 87% MPHR. Rest echo with borderline LVD with normal systolic function, no wall motion abnormalities, and mild valvular disease (PI/AI/MR).
--- NOTE | 2024-05-24 13:32 | History & Physical Report ---
Date of Service May 24, 2024 Assessment & Plan (1) Primary osteoarthritis of left hip: 58-year-old female with persistent progressive left hip pain despite conservative care. She got moderate arthritis on x-ray. She has failed conservative measures. It is limiting her activities. This really seems to be coming from her hip. Plan: We have discussed in depth treatment options. She has failed pretty much all conservative care. She like to proceed with total hip replacement. Will take her to the operating room and do a left total hip replacement. The risks Mente this procedure explained to her and she understands. Informed consent was obtained. Will use aspirin for DVT prophylaxis. She will be in the hospital overnight and hopeful discharge postoperative day 1 with home health. (2) Hypothyroidism: (3) Anxiety and depression: (4) Hypertension: History of Present Illness Chief Complaint: . Persistent left hip and groin pain. Primary Care Provider: Geni Coates DO . The patient is a 58-year-old female who presents for surgical treatment of her left hip. She has had a gradual progressive increasing pain and discomfort in the left hip that is occurred over the past year in particular the past several months. She is taken various medicines which have not been effective. Scribes mostly groin and thigh pain. The more she walks the more it hurts. She limps more as the day goes on. She did have an injection to the joint by Dr. Feldman that helped her for about 2 weeks and that is about it. She like to have her hip fixed. Allergies Allergy/AdvReac Type Severity Reaction Status Date / Time No Known Drug Allergies Allergy Verified 04/23/24 10:54 Home Medications Medication Instructions Recorded Confirmed Type cholecalciferol (vitamin D3) 25 1,000 units PO DAILY 10/23/18 04/23/24 History mcg (1,000 unit) capsule sertraline 100 mg tablet See Rx Instructions .Route 08/19/23 04/23/24 Rx .COMPLEX #90 tabs amlodipine 5 mg tablet 5 mg PO DAILY #90 tabs 12/05/23 04/23/24 Rx diclofenac sodium 75 mg 75 mg PO BID PRN pain #60 tabs 01/23/24 04/23/24 Rx tablet,delayed release walker #1 ea 03/26/24 03/26/24 Rx omeprazole 20 mg capsule,delayed 20 mg PO DAILY #90 caps 04/20/24 04/23/24 Rx release hydrochlorothiazide 12.5 mg tablet 12.5 mg PO QAM #90 tabs 05/07/24 Rx valacyclovir 500 mg tablet 500 mg PO BID PRN Cold Sores #60 05/08/24 Rx tabs Past Med/Surg History Problem List Encounter for pre-operative examination Primary osteoarthritis of left hip Femoroacetabular impingement of left hip Hypothyroidism Anxiety and depression Hypertension Internal hemorrhoids Laryngopharyngeal reflux Vitamin D deficiency Medical History Obesity Osteoarthritis HTN (hypertension) Laryngopharyngeal reflux History of hypothyroidism Euthyroid off meds Depression History of COVID-19 (2020) Hospitalized at [facility] x4 days w/Covid PNA Surgical History Status post epidural steroid injection left hip Hx of LASIK Hx of colonoscopy History of laparoscopy H/O: hysterectomy Family History Father Myocardial infarction Stroke Diabetes Hypertension Coronary heart disease Mother Depression Hypothyroid Cancer brain Denies family history of Ovarian cancer Prostate cancer Breast cancer Colorectal cancer Social History Smoking Status: Never smoker Second Hand Exposure: No; Do You Dip or Chew Tobacco: No; Hx Alcohol Use: Yes Alcohol type: wine Hx Substance Use: No Preferred Language: Sinhala Communication Ability: Effective Visual Impairment: No Limitations Hearing Ability: Normal 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 Beliefs That Will Affect Care: None marital status: Current Living Situation: Spouse current occupational status: employed current occupation: [employer] How many Children do You have: 1 Feels Safe at Home: Yes Childhood Exposure to Second-Hand Smoke: No Diet: regular caffeine: Yes (Tea 1 cup per day.) during the past year weight has: remained stable Dental Care, Regularly: Yes Physical Activity Frequency: Other Physical Activity Frequency Comment: limited d/t back pain Seatbelt Use: always Sunscreen Use: Yes Assistive Devices: None Review of Systems All systems reviewed & are unremarkable except as noted in HPI & below. Physical Exam . Physical examination reveals a pleasant middle-age female. Looks to be in reasonably good health. Examination of the left hip and leg reveal patient walks with a slightly antalgic gait. Leg lengths clinically appear pretty equal. She does have pain with any attempted hip internal rotation. She does internally rotate about 10 degrees. This recreates her pain. Minimal lateral hip pain or tenderness. No knee effusion. She is neurologically intact. Constitutional WD/WN, vitals as above Respiratory normal respiratory effort, lungs clear to auscultation Cardiovascular RRR, no murmur, no edema Gastrointestinal (Abdomen) normal bowel sounds, soft, nontender, no hepatosplenomegaly Results & Data Results & Data Laboratory Results . Diagnostic Findings . X-rays of the left hip show some moderate left hip arthritis. She got about 50% loss of joint space. She clearly has some osteophytes around the femoral head superiorly and inferiorly. MRI was also reviewed from January 13, 2024. Shows a small hip joint effusion. She has degenerative changes in the cartilage and a little bit of edema in the femoral head. PG Care Time/CCT Total # of Minutes Spent Total Time Spent with Patient: Total time spent is greater than 50% in coordination of care (as documented) at patient's floor/unit and/or counseling patient: Coding Level of Care Code None Diagnoses Primary osteoarthritis of left hip M16.12 Hypothyroidism E03.9 Anxiety and depression F41.9; F32.9 Hypertension I10
[2024-05-29] MEDS: ACETAMINOPHEN 500 MG TAB PO SCH ×2 (05:49→15:21)
[2024-05-29] MEDS: CeleBREX 200 MG CAP PO SCH (05:49)
[2024-05-29] MEDS: METOCLOPRAMIDE HCL 10 MG TABLET PO SCH (05:49)
[2024-05-29] MEDS: FAMOTIDINE 20 MG TAB PO SCH (05:49)
[2024-05-29] MEDS: LR 500ML BOLUS, THEN 15ML/HR IV SCH (05:49)
[2024-05-29] MEDS: LR 60ML/HR IV SCH (05:49)
[2024-05-29] MEDS: dexAMETHasone**PF** 10 MG/ML VIAL IV SCH (05:50)
[2024-05-29] MEDS ORDERED: PROPOFOL IV EMULSION 10 MG/ML 20 ML VIAL IV ONE (06:21)
[2024-05-29] MEDS ORDERED: ONDANSETRON INJ 2 MG/ML 2 ML VIAL ONE (06:21)
[2024-05-29] MEDS ORDERED: DEXAMETHASONE SOD INJ 4 MG/ML VIAL ONE (06:21)
[2024-05-29] MEDS ORDERED: KETAMINE HCL 10MG/ML SYR ONE (06:24)
[2024-05-29] MEDS ORDERED: MIDAZOLAM HCL 1 MG/ML 2ML VIAL ONE ×2 (06:24→06:40)
[2024-05-29] MEDS ORDERED: fentaNYL citrate PF 100 MCG/2 ML VIAL ONE ×2 (06:24→06:41)
[2024-05-29] MEDS ORDERED: BUPIVACAINE 0.5 % 5 MG/1 ML PF 10ML VIAL ONE (06:28)
[2024-05-29] MEDS ORDERED: ePHEDrine sulfate 50 MG/ML AMP IV PRN ×2 (06:36→09:37)
[2024-05-29] MEDS ORDERED: ATROPINE SULFATE 0.1 MG/ML 10ML SYR IV PRN (06:36)
[2024-05-29] MEDS ORDERED: fentaNYL citrate PF 100 MCG/2 ML VIAL IV PRN (06:36)
[2024-05-29] MEDS ORDERED: ONDANSETRON INJ 2 MG/ML 2 ML VIAL IV PRN (06:36)
[2024-05-29] MEDS ORDERED: MoRPHine SULFATE PF 1 MG/ML 10 ML AMP/VIAL ONE (06:39)
[2024-05-29] MEDS: TRANEXAMIC ACID 1,000 MG **IV Pre-op IV SCH (06:44)
--- NOTE | 2024-05-29 06:49 | History & Physical Bridge Note ---
Date of Service May 29, 2024 History & Physical Bridge Note I have examined the patient, reviewed the History & Physical and in the interval since the performance of the History & Physical I have noted the following changes of clinical significance: no changes noted
[2024-05-29] MEDS: ceFAZolin 2000MG 2,000 MG/15 ML SYR IV SCH ×2 (06:58→15:21)
[2024-05-29] MEDS ORDERED: PHENYLEPHRINE 100MCG/ML 5ML SYR ONE ×2 (07:25→08:02)
[2024-05-29] MEDS: BUPIVACAINE/EPINEPHRINE 0.5% MPF 1:200,000 30 ML VIAL ONE (07:34)
[2024-05-29] MEDS ORDERED: PHENYLEPHRINE HCL 10 MG/ML VIAL ONE ×2 (08:22)
--- NOTE | 2024-05-29 08:47 | Operative Report ---
PG Post Operative Report Pre & Post Diagnosis Operation Date: 05/29/24 07:00 Pre-Op Diagnosis: Left Hip Osteoarthritis Post-Op Diagnosis: Left Hip Osteoarthritis I identified the patient and participated in the time-out.: Yes Procedure Operation Date: 05/29/24 07:00 Actual Procedures p Left Total Hip Arthroplasty, Uncemented(Left) - Anshul Flores MD Surgeon Anshul Flores MD Linux Programmer Jovon Gaston PA-C Estimated Blood Loss 100 Findings Consistent with Post-Op Diagnosis Operative findings revealed a large soft tissue envelope. That she did have advanced hip arthritis much more significant than seen on x-ray. She had [id number] disease of the femoral head. Moderate-sized joint effusion. Not much osteophyte formation. Specimens Left knee sent for pathology. Anesthesia Type Spinal MAC Complications none Disposition Accompanied Patient To Recovery: No Indications Patient is a 58-year-old female whose had a progressive history of left hip pain discomfort described to gotten worse over time. She been through extensive conservative treatment clued oral medicines and an intra-articular injection which helped her for about 2 weeks. X-rays show some moderate hip arthritis. MRI showed more significant arthritis. She failed conservative measures and elected proceed with total hip arthroplasty. Description of Procedure Operative implants consist of: 1. Biomet G7 size 50 mm acetabular shell. 2. Fitzhugh hole milk route supervisor. 3. 6.5 cancellous acetabular screws 1 of 35 mm in length and 1 of 30 mm length. 4. Highly cross-linked polyethylene liner with a 50 mm outer diam and 36 mm inner diameter. 5. DePuy Corail size 11 KLA femoral stem. 6. +1.5/36 mm ceramic articular ball. The patient was taken the op room, identified, placed on the operating table in the supine position. All conductors were appropriately padded. IV antibiotics fibra anesthesia team. A spinal anesthetic been implemented holding area. A Horton catheter was placed in sterile fashion. The patient then placed in the right lateral decubitus position. An axillary roll was placed. A stool Birkett position was used for positioning. Left hip and leg were then prepped and draped in usual sterile fashion. A posterolateral approach to the left hip was then performed to a curvilinear incision centered over the greater trochanter. Sharp dissection was got through subcutaneous tissue dental of the IT band gluteal fascia. The IT band gluteal fascia incised longitudinally in line with skin incision. The underlying greater bursa was excised. The the piriformis and external rotators along with the posterior hip joint capsule were then released from the posterior aspect the hip as a single layer. The hip was internally rotated and dislocated. A femoral neck osteotomy cut was made with a Final Cut 15 mm above the lesser trochanter. Femoral head was removed and sent for pathology. The femur was retracted anteriorly. Attention the acetabulum. The acetabular labrum was excised. The pulmonary fat was excised. Sequential reaming the acetabulum performed again with size 43 and progressing up to 49. I reamed a little bit with a 50 reamer and then placed a 50 mm acetabular shell in about 40 degrees lateral opening and 20 L of anteversion. It was fixed with two 6.5 cancellous screws. A trial liner was placed. Attention drawn the femur. The proximal femur down with cookie-cutter followed by canal finder. I then broached beginning with a size 8 and progressing up to 11. Get excellent fit 11. We trialed the hip. The +5 articular ball provided full stability but seemed a little bit tight in extension. We elect to place a 1.5 ball. All trial implants were removed. An apex hole milk route supervisor was placed. Highly cross-linked polyethylene liner was placed. A size 11 KLA femoral stem was impacted in position. A +1.5/36 mm ceramic articular ball was placed. Hip was located once again found to be stable. Attention drawn toward closing. The wound was irrigated with coconuts of pulsatile lavage solution. I did inject locally with 60 cc of half percent Marcaine with epinephrine. The patient did receive 1 g of tranexamic acid. The posterior capsule extra rotators were then repaired through drill holes in the posterior trochanter with #2 Tycron suture. The IT band gluteal fascia were then closed in 1 PDS suture running fashion. Subcutaneous tissues then closed with 2 layers the deep layer #2 Vicryl suture in the subcutaneous tissues with 2-0 Dexon suture in a buried interrupted fashion. Skin was closed skin rose. The leg was then cleaned and dried. The Prevena VAC dressing was applied due to the thick soft tissue envelope. The patient then transferred to the recovery room in stable condition. Patient tolerated procedure well and there were no complications. Jovon Gaston, my physician assistant drafter, was present for the entire procedure. His assistance was essential and required for appropriate patient positioning, prepping and draping, surgical exposure, performing the technical details of the operation, placement the implants, closure of the wound, and placement of the sterile bandage. I attest to the content of the Intraoperative Record and any orders documented therein. Any exceptions are noted below.
[2024-05-29] MEDS ORDERED: NALOXONE HCL 0.08 MG in SYRINGE 1.8 ML IV PRN (09:37)
[2024-05-29] MEDS ORDERED: NALBUPHINE HCL INJ 10 MG/ML AMP IV PRN (09:37)
[2024-05-29] MEDS ORDERED: NALOXONE HCL 1 MG in SODIUM CHLORIDE 0.9% 1,000 ML IV PRN (09:37)
[2024-05-29] MEDS ORDERED: diphenhydrAMINE 50 MG/ML VIAL IV PRN (09:37)
[2024-05-29] MEDS ORDERED: NALOXONE HCL 0.4 MG/1 ML VIAL/CARP IV PRN (09:37)
--- NOTE | 2024-05-29 09:40 | XRay Report ---
XR hip 1V LT w pelvis CLINICAL HISTORY: IN PACU - Post Surgical left total arthroplasty COMPARISON: None FINDINGS: AP pelvis and crosstable lateral view of the left hip were performed. A left-sided total h ip replacement is noted with satisfactory positioning and alignment of the prosthetic components. IMPRESSION: Satisfactory postop appearance ACT 112: Negative or not required by law. Electronically signed by: Brittney Painter M.D. 05/29/2024 9:38 AM
[2024-05-29] MEDS ORDERED: DC INTRASPINAL MORPHINE SCH (09:45)
[2024-05-29] MEDS ORDERED: NO NARCOTICS OR SEDATIVES SCH (09:45)
--- NOTE | 2024-05-29 09:47 | Anesthesiology Progress Note ---
Date of Service May 29, 2024 Anesthesia Post Procedure Vital Signs Vital Signs: Temp Pulse Pulse Resp BP BP Pulse Ox 05/29/24 09:25 88 20 148/94 H 97 05/29/24 09:15 97.7 F 86 14 127/82 92 05/29/24 09:05 88 20 137/77 94 05/29/24 08:55 89 12 106/79 98 05/29/24 08:45 93 H 16 138/72 100 05/29/24 08:35 97 H 16 117/72 97 05/29/24 05:45 80 20 152/86 H 96 05/29/24 05:37 98.2 F 90 20 167/102 H 95 O2 Del Method O2 Flow Rate 05/29/24 09:25 Room Air 05/29/24 09:15 Room Air 05/29/24 09:05 Room Air 05/29/24 08:55 Room Air 05/29/24 08:45 Room Air 3 05/29/24 08:35 Oxymask 6 05/29/24 05:45 Room Air 05/29/24 05:37 Room Air Transfer of Care Handoff Completed per policy Notes Mental Status: alert / awake / arousable and participated in evaluation Patient Amnestic to Procedure: Yes Nausea / Vomiting: adequately controlled Pain: adequately controlled Airway Patency, RR, SpO2: stable & adequate BP & HR: stable & adequate Hydration State: stable & adequate Neuraxial Anesthesia: was administered and sensory block is resolving Anesthetic Complications: no major complications apparent and Pt Satisfied with anesthetic care
[2024-05-29] MEDS ORDERED: bisacodyL 10 MG SUPP PR PRN (09:48)
[2024-05-29] MEDS ORDERED: ALUMINUM/MAGNESIUM SUSP 30 ML UDC PO PRN (09:48)
[2024-05-29] MEDS ORDERED: MAGNESIUM HYDROXIDE SUSP 30 ML UDC PO PRN (09:48)
[2024-05-29] MEDS: SENNA 8.6 MG TAB PO SCH (10:54)
[2024-05-29] MEDS: DOCUSATE SODIUM 100 MG CAP PO SCH (10:54)
[2024-05-29] MEDS: KETOROLAC 30 MG/ML VIAL IV SCH (10:55)
[2024-05-29] MEDS: hydroCHLOROthiazide 25 MG TAB PO SCH (11:48)
[2024-05-29] MEDS: CHOLECALCIFEROL 25 MCG (1000 UNITS) TAB PO SCH (11:49)
[2024-05-29] MEDS: ASPIRIN 81 MG ECTAB PO SCH (11:49)
[2024-05-29] MEDS: amLODIPine BESYLATE 5 MG TAB PO SCH (11:49)
[2024-05-29] MEDS: PANTOprazole 40 MG TAB PO SCH (11:49)
[2024-05-29] MEDS: MULTIVITAMIN TAB PO SCH (11:49)
[2024-05-29] MEDS: MoRPHine SULFATE PF 1 MG/ML 10 ML AMP/VIAL INT SPINAL ONE (11:50)
[2024-05-29] MEDS: TRANEXAMIC ACID / 0.7% NACL 1,000 MG/100 ML BAG IV SCH (16:43)
[2024-05-29] MEDS: ASCORBIC ACID 500 MG TAB PO SCH (16:44)
[2024-05-29] MEDS: SODIUM CHLORIDE 0.65% NA SOLN 45 ML (OCEAN) ONE (18:32)
[2024-05-29] MEDS ORDERED: SENNA 8.6 MG TAB PO SCH (21:00)
[2024-05-30] MEDS ORDERED: HYDROmorphone INJ 0.5 MG/0.5 ML SYR IV PRN (03:38)
[2024-05-30] MEDS ORDERED: traMADol HCL 50 MG TABLET PO PRN (03:38)
[2024-05-30] MEDS ORDERED: ONDANSETRON INJ 2 MG/ML 2 ML VIAL IV PRN (03:38)
[2024-05-30] MEDS ORDERED: diphenhydrAMINE Capsule 25 MG CAP PO PRN (03:38)
[2024-05-30] MEDS ORDERED: NALOXONE HCL 0.4 MG/1 ML VIAL/CARP IV PRN (03:38)
[2024-05-30] MEDS ORDERED: METOCLOPRAMIDE HCL INJ 5 MG/ML 2 ML VIAL IV PRN (03:38)
[2024-05-30 06:32] LABS: Basophils # (auto) 0.02 K/uL (0.00-0.20); Basophils % (auto) 0.1 %; Hematocrit (blood only) 35.1 % (37.0-47.0); Hemoglobin 12.1 g/dl (12.0-16.0); Immature Granulocytes # (auto) 0.07 K/uL (0.01-0.20); Immature Granulocytes % (auto) 0.5 %; Lymphocytes # (auto) 1.02 K/uL (1.20-3.40); Lymphocytes % (auto) 6.6 %; Mean Corpuscular Hemoglobin 31.9 pg (25.0-34.0); Mean Corpuscular Hgb Conc 34.5 g/dL (32.0-36.0); Mean Corpuscular Volume 92.6 fL (80.0-100.0); Mean Platelet Volume 11.7 fL (9.4-12.4); Monocytes # (auto) 1.29 K/uL (0.11-0.59); Monocytes % (auto) 8.3 %; Neutrophils # (auto) 13.11 K/uL (1.40-6.50); Neutrophils % (auto) 84.5 %; Platelet Count 258 K/uL (130-400); RDW Standard Deviation 40.9 fL (36.4-46.3); Red Blood Count 3.79 M/uL (4.20-5.40); White Blood Count 15.51 K/ul (4.8-10.8)
[2024-05-30 06:36] LABS: Anion Gap 6 (3-11); BUN Creatinine Ratio 23.3 (10-20); Blood Urea Nitrogen 17 mg/dl (6-23); Calcium 8.8 mg/dl (8.6-10.3); Carbon Dioxide 27 mmol/L (21-32); Chloride 104 mmol/L (98-107); Creatinine Clr Calc Pharmacy 110.6 ml/min; Glucose 136 mg/dl (70-99(Fasting)); Sodium 137 mmol/L (136-145)
[2024-05-30 07:19] VITALS: BP 118/70; PULSE 73; RESP 18; TEMP 98.2; O2SAT 97
--- NOTE | 2024-05-30 07:33 | Orthopedic Progress Note ---
Date of Service May 30, 2024 Assessment & Plan (1) S/P total left hip arthroplasty: Pain controlled PT/OT wbat, total hip precautions dvt prophylaxis: teds, scd's, aspirin wbc elevated likely just result from surgery d/c planning: home with home health today after therapy Subjective . 58 year old patient POD 1 from left david. Pain controlled. Has been out of bed and ambulated. No other complaints. Review of Systems All systems reviewed & are unremarkable except as noted in HPI & below. Physical Exam .alert and oriented. NAD. VSS wbc elevated Left hip/leg: dressing intact and appears to be functioning appropriately. Able to dorsiflex and plantarflex. NVi. Hip located. Results & Data Results & Data Laboratory Results . Diagnostic Findings . PG Care Time/CCT Total # of Minutes Spent Total Time Spent with Patient: Total time spent is greater than 50% in coordination of care (as documented) at patient's floor/unit and/or counseling patient: Coding Level of Care Code 26897 Post Operative Follow-Up Diagnoses S/P total left hip arthroplasty Z96.642
[2024-05-30] MEDS: dexAMETHasone 10 MG in SYRINGE 0 ML IV SCH (07:54)
--- NOTE | 2024-05-31 15:33 | Discharge Summary ---
Date of Service May 31, 2024 Admission HPI (Per Admitting) . The patient is a 58-year-old female who presents for surgical treatment of her left hip. She has had a gradual progressive increasing pain and discomfort in the left hip that is occurred over the past year in particular the past several months. She is taken various medicines which have not been effective. Scribes mostly groin and thigh pain. The more she walks the more it hurts. She limps more as the day goes on. She did have an injection to the joint by Dr. Feldman that helped her for about 2 weeks and that is about it. She like to have her hip fixed. Admission Exam (Per Admitting) . Physical examination reveals a pleasant middle-age female. Looks to be in reasonably good health. Examination of the left hip and leg reveal patient walks with a slightly antalgic gait. Leg lengths clinically appear pretty equal. She does have pain with any attempted hip internal rotation. She does internally rotate about 10 degrees. This recreates her pain. Minimal lateral hip pain or tenderness. No knee effusion. She is neurologically intact. Principal Diagnosis Same as "Discharge Diagnosis" noted below under Discharge Instructions. Discharge Exam .alert and oriented. NAD. VSS wbc elevated Left hip/leg: dressing intact and appears to be functioning appropriately. Able to dorsiflex and plantarflex. NVi. Hip located. Discharge Data Procedures Performed Operation Date: 05/29/24 07:00 Actual Procedures p Left Total Hip Arthroplasty, Uncemented(Left) - Anshul Flores MD Hospital Course (1) S/P total left hip arthroplasty: This is a 58 year old patient admitted on 05/29/24 and underwent total hip arthroplasty. She tolerated the procedure well and there were no complications. Transferred to the PACU post op and later to the orthopedic floor for further care. She was given ancef for antibiotic prophylaxis. She was also given GANESH stockings, SCDs, and aspirin for DVT prophylaxis. Hemoglobin, hematocrit, and vital signs were monitored during her hospital stay and remained stable. Did not require any blood transfusions. There were no complications during her hospital stay. By post op day #1 the patient was tolerating a regular diet, pain was reasonably controlled with oral pain medicine, and she was participating in physical therapy. The prevena vac wound dressing stopped working properly after her therapy, multiple attempts were made to correct this, and eventually the dressing was changed by wound care staff. On post op day #1 the patient was discharged home and set up with home health care. She was given printed discharge instructions including prescriptions for extra strength tylenol, aspirin, ketorolac, zofran, senokot, and tramadol. Continue hip precautions. Continue physical therapy, weight bearing as tolerated. Continue GANESH stockings. Follow up approximately 2 weeks post op or sooner if there are problems or concerns. PG Care Time/CCT Total # of Minutes Spent Total Time Spent with Patient: : Discharge Plan Discharge Items Patient Disposition: Home - Home Health Services Reason For Visit: POST OP SURGICAL CARE Discharge Diagnosis: left total hip replacement Activity: Per Instructions section Non-emergency contact: Surgeon Call non-emergency contact if: you have any medication questions, your pain is not controlled, you have a fever, your wound has increased redness and your wound has increased drainage Follow-up/Referrals: Geni Coates DO [Primary Care Provider] - Diet: Regular Addtl Attending Provider Instructions: ACTIVITY RECOMMENDATIONS: Diet: * You may resume previous diet. Physical Therapy: * Aggressive physical therapy is not usually needed. You will learn to take care of yourself safely and walk. * Follow the "Hip Precautions Instructions." * In some cases, the social studies teacher at the hospital will arrange to have a therapist come to your house for the first couple of weeks to help you learn these skills. * You need to practice on your own or with the help of a family member as needed. * When you learn these skills, most of the therapy can be done on your own. Home Exercise: * You were shown a series of exercises in the hospital. Do these exercises three to four times each day including the exercises you were shown in physical therapy. Walking: * Get up and walk several times each day. For the first four weeks, try not to stand or walk for more than one hour at a time. If you do stand or walk for more than one hour, you will not hurt anything, but your leg will likely swell. * As you feel comfortable, you may change from the walker or crutches to a cane and then to independent walking. MEDICATIONS: New Medicine: * You will likely be taking one or more of these medicines: 1. Tramadol - Take, as directed, when you need it, every six hours to control your pain. 2. Aspirin - Thins your blood to lessen the chance of forming a blood clot. * The most common side effects of pain medicine and iron are nausea and constipation. If nausea or constipation is too much of a problem or if you have any questions about your new medicines or doses, call [facility] at . We will try to help you manage these issues. "VERY IMPORTANT TO READ AND REVIEW" Pain: * The immediate post-operative period after hip replacement surgery is often quite painful. * You are given a prescription for pain medicine. You should take it, as directed, when you need it, especially before physical therapy and before going to bed. Pain that interferes with sleep is very common and can last several months. * You will likely need pain medicine for the first two to four weeks. It will not stop all of the pain. The pain will lessen and as you feel better, you may change to milder pain medicine such as Tylenol. * The most common side effects of pain medicine are nausea and constipation, so don't take more than you need. SPECIAL CARE INSTRUCTIONS: TEDs/Elastic Stockings: * The white elastic stockings help limit swelling and prevent blood clots from forming in your legs. The more you wear them, the more they work. * Wear them for six weeks. Incision Site Care: * Remove dressing postoperative day 7 when battery discontinues. Keep direct shower pressure off the incision site. * After showering, cover rose with dry gauze and change daily or more frequently if the dressing is getting saturated with drainage. * May completely stop using bandage if wound is dry and no drainage * Rose are removed between 2 and 3 weeks post-op. If your follow-up appointment is made before 2 weeks, please have your appointment re- scheduled. It is too early to remove the rose. Prevention of Infection: * Take antibiotics one hour before any dental cleaning, dental work, urological procedure, gastrointestinal procedure or any invasive surgery in order to prevent your new joint from getting infected. * You may get the antibiotics from the doctor performing the procedure or you may call our office at before and we will call in a prescription to the pharmacy of your choice. Things to Watch For: * Drainage from the incision site that occurs more than one week after your surgery. * Severely increased leg pain or swelling. * Increased redness at the incision site. * Fever above 102 degrees Fahrenheit. * Unusual chest pain or shortness of breath. * Unusual pain or burning with urination. Call [facility] at with any of the above problems or if you have any questions about your medicines or recovery. FOLLOW UP VISIT: Make an appointment to see your doctor for approximately two weeks after surgery for a progress check and staple removal by calling the office at . Pending Studies at Discharge: No Stand-Alone Forms: My [facility], Smoking Cessation Medications and DC Order Prescriptions: Continued amlodipine 5 mg tablet 5 mg PO DAILY Qty: 90 1RF omeprazole 20 mg capsule,delayed release(DR/EC) 20 mg PO DAILY Qty: 90 1RF hydrochlorothiazide 12.5 mg tablet 12.5 mg PO QAM Qty: 90 1RF valacyclovir 500 mg tablet 500 mg PO BID PRN (Reason: Cold Sores) Qty: 60 2RF tramadol 50 mg tablet 50 - 100 mg PO Q6 PRN (Reason: pain) Qty: 40 0RF Rx Instructions: Take as needed for pain ondansetron 4 mg tablet,disintegrating 4 mg PO Q8 PRN (Reason: nausea) Qty: 20 1RF Rx Instructions: Take as needed for nausea ketorolac 10 mg tablet 10 mg PO Q6 5 Days Qty: 20 0RF Rx Instructions: Take 4 times per day with food for 5 days to lessen pain and swelling. sennosides [Senokot] 8.6 mg tablet 8.6 mg PO BID 14 Days Qty: 28 0RF Rx Instructions: Take two times a day to prevent/treat constipation acetaminophen [Tylenol Extra Strength] 500 mg tablet 1,000 mg PO TID 30 Days Qty: 180 0RF Rx Instructions: Take 3 times per day to lessen pain. aspirin [Jacques Low Dose Aspirin] 81 mg tablet,delayed release (DR/EC) 81 mg PO BID 45 Days Qty: 90 0RF Rx Instructions: Take to prevent blood clots. sertraline 100 mg tablet See Rx Instructions .ROUTE .COMPLEX Qty: 90 2RF Dose Instruction: TAKE 1 TABLET BY MOUTH EVERY MORNING Rx Instructions: TAKE 1 TABLET BY MOUTH EVERY MORNING cholecalciferol (vitamin D3) 1,000 unit capsule 1,000 units PO DAILY (DME) [place] [facility] [place] Instructions .MEDSUPPLY Qty: 1 0RF Rx Instructions: As directed Discontinued diclofenac sodium 75 mg tablet,delayed release (DR/EC) 75 mg PO BID PRN (Reason: pain) Qty: 60 2RF Rx Instructions: Take with food Krames/Other Patient Handouts: DVT Post Op Prevention Admission Data Admit Date/Time: 05/29/24 08:40 Attending Provider: Anshul Flores Admit Provider: Anshul Flores Primary Care Provider: Geni Coates Other Interventions: Discharge Summary Assessment (RN) Last Done: 05/30/24 08:46
== END 2024-05-30 12:26 | disposition home health service (06) ==
LOC: 3E 05:17 → ASU 05:17